=== PATIENT | female | born 1945 | race Caucasian/White ===

== ENCOUNTER 2021-10-15 12:44 | Emergency (ER) | payer MEDICARE ==
[2021-10-15 13:05] VITALS: BP 185/96; PULSE 80; RESP 18; TEMP 98.2
[2021-10-15] MEDS ORDERED: DEXAMETHASONE SOD PHOSPHATE 10 MG/ML 1 ML VIAL IM STA (13:22)
[2021-10-15] MEDS ORDERED: KETOROLAC 15 MG/ML 1 ML VIAL IM STA (13:22)
--- NOTE | 2021-10-15 13:55 | XR ---
EXAMINATION TYPE: XR shoulder complete RT DATE OF EXAM: 10/15/2021 CLINICAL HISTORY: pain TECHNIQUE: Three views of the right shoulder are obtained. COMPARISON: None FINDINGS: There is no acute fracture/dislocation evident. The acromioclavicular and glenohumeral claudio int spaces appear within normal limits. The visualized ribs are intact and unremarkable. There is va gabe lucency involving the humeral greater tuberosity region of the base of the humeral head. Underlyi ng lesion is difficult to exclude. Correlate with any history of primary malignancy. If felt clinical ly indicated bone scan could be performed on a nonemergent basis. Right axillary stent noted. IMPRESSION: 1. There is no acute fracture or dislocation. 2.There is vague lucency involving the humeral greater tuberosity region of the base of the humeral h ead. Underlying lesion is difficult to exclude. Correlate with any history of primary malignancy. ICD 10 NO FRACTURE, INITIAL EVALUATION
--- NOTE | 2021-10-15 13:57 | XR ---
EXAMINATION TYPE: XR humerus RT DATE OF EXAM: 10/15/2021 CLINICAL HISTORY: pain COMPARISON: NONE TECHNIQUE: Frontal and lateral images of the right humerus are obtained. FINDINGS: There is no acute fracture/dislocation evident. The joint spaces appear within normal limi ts. The overlying soft tissue appears unremarkable. IMPRESSION: There is no acute fracture or dislocation.ICD 10 NO FRACTURE, INITIAL EVALUATION
--- NOTE | 2021-10-15 13:57 | XR ---
EXAMINATION TYPE: XR forearm RT DATE OF EXAM: 10/15/2021 CLINICAL HISTORY: pain TECHNIQUE: Frontal and lateral images of the right forearm are obtained. COMPARISON: None. FINDINGS: There is no acute fracture/dislocation evident. The joint spaces appear within normal limi ts. The overlying soft tissue appears unremarkable. IMPRESSION: There is no acute fracture or dislocation. ICD 10 NO FRACTURE, INITIAL EVALUATION
--- NOTE | 2021-10-15 14:40 | ED ---
General Adult HPI - General Chief complaint: Extremity Injury, Upper Stated complaint: R arm pain Time Seen by Provider: 10/15/21 13:11 Source: patient Mode of arrival: ambulatory Limitations: no limitations - History of Present Illness Initial comments: Patient is a 76 year old female presenting with CC of R sided arm pain. Patient states that the pain initially began after a heart cath about one year ago, they attempted to go in through her R arm but were unsuccessful. She states that afterwards her textile clothing and footwear mechanic placed stents in the right arm. Throughout the last year patient has been experiencing cramping, squeezing pain at various locations throughout the R arm. Today it is in the upper arm and shoulder. She took 2 Advil last night which have not been helpful in alleviating the pain. She attempted to go to a chiropractor which also provided no pain relief. The pain is affecting her range of motion. She denies any numbness, tingling, swelling, discoloration, fever, chills, nausea, vomiting, chest pain, shortness of breath, headache, vision or hearing changes. - Related Data Previous Rx's Medication Instructions Recorded methylPREDNISolone [Medrol Dose 4 mg PO DIRECTED #1 packet 10/15/21 Pack] Allergies Allergy/AdvReac Type Severity Reaction Status Date / Time Sulfa (Sulfonamide Allergy Unknown Verified 07/22/21 14:57 Antibiotics) Review of Systems ROS Statement: Those systems with pertinent positive or pertinent negative responses have been documented in the HPI. ROS Other: All systems not noted in ROS Statement are negative. Past Medical History Past Medical History: Diabetes Mellitus, Hypertension History of Any Multi-Drug Resistant Organisms: None Reported Past Surgical History: Heart Catheterization Additional Past Surgical History / Comment(s): RIGHT ARM ARTERIAL STENTS Smoking Status: Never smoker Past Alcohol Use History: None Reported Past Drug Use History: None Reported General Exam Limitations: no limitations General appearance: alert, in no apparent distress Head exam: Present: atraumatic, normocephalic, normal inspection Eye exam: Present: normal appearance, EOMI. Absent: scleral icterus Neck exam: Present: normal inspection Respiratory exam: Present: normal lung sounds bilaterally. Absent: respiratory distress, wheezes, rales, rhonchi, stridor Cardiovascular Exam: Present: regular rate, normal rhythm, normal heart sounds. Absent: systolic murmur, diastolic murmur, rubs, gallop, clicks Right General: Present: normal inspection Shoulder Exam: Present: normal inspection, tenderness. Absent: full ROM (Secondary to pain), swelling, erythema Upper Arm exam: Present: normal inspection, tenderness. Absent: swelling, ecchymosis, erythema Neuro motor exam: Present: wrist extension intact Vascular: Present: radial pulse (palpated). Absent: vascular compromise Back exam: Present: normal inspection Neurological exam: Present: alert, oriented X3, CN II-XII intact Psychiatric exam: Present: normal affect, normal mood Skin exam: Present: warm, dry, intact, normal color. Absent: rash Course Vital Signs 10/15/21 13:01 Temperature 98.2 F Pulse Rate 80 Respiratory 18 Rate Blood Pressure 185/96 O2 Sat by Pulse 98 Oximetry Medical Decision Making - Medical Decision Making Patient is a 76-year-old female presenting with chief complaint of right arm pain. Pain is been ongoing for the last year, however she states that yesterday pain began to worsen. Pain was responsive to Advil at home. On examination there is no redness or swelling, there is tenderness to the shoulder and upper arm on palpation, radial pulse is palpated, there is no discoloration, extremity is warm. X-ray shows a vague lucency involving the humeral greater tuberosity region of the base of the humeral head. Underlying lesion is difficult to exclude. Patient states she has no history of malignancy. Patient was given Decadron and Toradol, she reports improvement. She appears stable for discharge with outpatient follow-up at this time. Educated patient on the xray findings and instructed her to follow up with her PCP. Follow-up with cardiology. She was provided a prescription for Medrol Dosepak. I educated her on return parameters and alarm symptoms. Report back to ER if any worsening symptoms. Answered all questions. Patient conveyed verbal understanding and agreed to the plan. I discussed this case with my attending Dr. Paniagua. Disposition Clinical Impression: Arm pain Disposition: HOME SELF-CARE Condition: Good Instructions (If sedation given, give patient instructions): Arm Pain (ED) Additional Instructions: Follow up with your PCP this week regarding the finding of a lucency on shoulder x-ray. Follow-up with your textile clothing and footwear mechanic at scheduled appointment. Take medication as prescribed. Take Motrin and Tylenol as needed for pain control. Report back to ER with any worsening symptoms. Prescriptions: methylPREDNISolone [Medrol Dose Pack] 4 mg PO DIRECTED #1 packet Is patient prescribed a controlled substance at d/c from ED?: No Referrals: Mónica Odom MD [Primary Care Provider] - 1-2 days Time of Disposition: 14:40
== END 2021-10-15 14:50 | disposition home or self-care (01) ==
LOC: EC 12:44
DX: M79.601 Pain in right arm (principal); E11.9 Type 2 diabetes mellitus without complications; I10 Essential (primary) hypertension; Z88.2 Allergy status to sulfonamides
CPT/HCPCS: 73030; 73060; 73090; 99283; 96372; J1100; J1885

== ENCOUNTER 2022-08-24 18:35 | Observation (INO) | payer MEDICARE ==
[2022-08-24 20:33] LABS: Basophils % (A) 1 %; Eosinophils # (A) 0.2 k/uL (0-0.7); Eosinophils % (A) 4 %; HCT 49.6 % (34.0-46.0); HGB 16.2 gm/dL (11.4-16.0); Lymphocytes # (A) 1.3 k/uL (1.0-4.8); Lymphocytes % (A) 21 %; MCH 30.1 pg (25.0-35.0); MCHC 32.7 g/dL (31.0-37.0); MCV 91.9 fL (80.0-100.0); Monocytes # (A) 0.3 k/uL (0-1.0); Monocytes % (A) 5 %; Neutrophils # (A) 4.2 k/uL (1.3-7.7); Neutrophils % (A) 68 %; Platelet Count 310 k/uL (150-450); RBC 5.39 m/uL (3.80-5.40); RDW 13.2 % (11.5-15.5); WBC 6.3 k/uL (3.8-10.6)
--- NOTE | 2022-08-24 20:49 | XR ---
EXAMINATION TYPE: XR chest 2V DATE OF EXAM: 08/24/2022 8:27 PM COMPARISON: None TECHNIQUE: XR chest 2V Frontal and lateral views of the chest. CLINICAL INDICATION:Female, 77 years old with history of Chest Pain; FINDINGS: Lungs/Pleura: There is flattening of the diaphragm with increased lucency of the lungs. No evidence o f pneumothorax, pleural effusion or focal consolidation. Pulmonary vascularity: Unremarkable. Heart/mediastinum: Cardiomediastinal silhouette is unremarkable. Musculoskeletal: No acute osseous pathology. IMPRESSION: 1. No acute cardiopulmonary disease process. 2. COPD changes.
[2022-08-24 20:52] LABS: ALT 31 U/L (4-34); AST 37 U/L (14-36); African American GFR (CKD) >90 (>60 ml/min/1.73 sqM); Albumin 4.4 g/dL (3.5-5.0); Alkaline Phosphatase 120 U/L (38-126); Anion Gap 7 mmol/L; Blood Urea Nitrogen 29 mg/dL (7-17); Calcium 9.6 mg/dL (8.4-10.2); Carbon Dioxide 23 mmol/L (22-30); Chloride 108 mmol/L (98-107); Glucose 101 mg/dL (74-99); Magnesium 2.2 mg/dL (1.6-2.3); Non-African American GFR(CKD) 84 (>60 ml/min/1.73 sqM); Sodium 138 mmol/L (137-145); Total Bilirubin 0.8 mg/dL (0.2-1.3); Total Protein 8.3 g/dL (6.3-8.2)
[2022-08-24 21:10] LABS: Potassium 4.3 mmol/L (3.5-5.1)
[2022-08-24 21:22] LABS: INR 0.9 (<1.2); Partial Thromboplastin Time 23.4 sec (22.0-30.0)
[2022-08-24] MEDS ORDERED: NALOXONE 0.4 MG/ML 1 ML VIAL IV PRN (21:33)
--- NOTE | 2022-08-24 21:33 | ED ---
Chest Pain HPI - General Chief Complaint: Chest Pain Stated Complaint: chest pain, sob - sent by pcp Time Seen by Provider: 08/24/22 18:40 Source: patient Mode of arrival: wheelchair Limitations: no limitations - History of Present Illness Initial Comments: 77-year-old female with past medical history of aortic root aneurysm, hypertension and presents to the emergency department reporting chest pain. States that she has had a productive cough, chills and shortness of breath for the past week. Today she began developing some pressure in her chest. States that she has significant exertional shortness of breath and fatigue. Denies fevers. No sick contacts. No ripping or tearing sensation to her back. No numbness, tingling or weakness in her extremities. Her blood pressure has been running high. She has not missed any of her medications. No other alleviating, precipitating or modifying factors - Related Data Home Medications Medication Instructions Recorded Confirmed Aspirin EC [Ecotrin Low Dose] 81 mg PO DAILY 08/24/22 08/24/22 Docusate [Colace] 100 mg PO Q4D 08/24/22 08/24/22 Empagliflozin [Jardiance] 25 mg PO DAILY 08/24/22 08/24/22 Insulin Glargine,Hum.rec.anlog 5 units SQ HS 08/24/22 08/24/22 [Lantus Solostar Pen] Insulin Glargine,Hum.rec.anlog 15 units SQ DAILY 08/24/22 08/24/22 [Lantus Solostar Pen] Insulin Lispro [humaLOG Kwikpen] See Protocol SQ AC-TID PRN 08/24/22 08/24/22 Losartan Potassium [Cozaar] 100 mg PO HS 08/24/22 08/24/22 Previous Rx's Medication Instructions Recorded carvediloL [Coreg] 6.25 mg PO BID-W/MEALS #60 tab 08/26/22 hydroCHLOROthiazide [Hydrodiuril] 25 mg PO DAILY #30 tab 08/26/22 Allergies Allergy/AdvReac Type Severity Reaction Status Date / Time Sulfa (Sulfonamide Allergy Unknown Verified 08/24/22 20:53 Antibiotics) iv dye Allergy Anaphylaxis Uncoded 08/24/22 18:44 Review of Systems ROS Statement: Those systems with pertinent positive or pertinent negative responses have been documented in the HPI. ROS Other: All systems not noted in ROS Statement are negative. EKG Findings - EKG Comments: EKG Findings:: EKG demonstrates sinus rhythm with a rate of 80. RI interval 246. QRS 109. QTC of 456. Some PVCs. Left bundle branch block. Mild ST depression V4 to V6. no ST segment elevation Past Medical History Past Medical History: Diabetes Mellitus, Hypertension History of Any Multi-Drug Resistant Organisms: None Reported Past Surgical History: Heart Catheterization Additional Past Surgical History / Comment(s): RIGHT ARM ARTERIAL STENTS Past Psychological History: No Psychological Hx Reported Smoking Status: Never smoker Past Alcohol Use History: None Reported Past Drug Use History: None Reported General Exam Limitations: no limitations General appearance: alert, in no apparent distress Head exam: Present: atraumatic, normocephalic, normal inspection Eye exam: Present: normal appearance, PERRL, EOMI. Absent: scleral icterus, conjunctival injection, periorbital swelling ENT exam: Present: normal exam, mucous membranes moist Neck exam: Present: normal inspection. Absent: tenderness, meningismus, lymphadenopathy Respiratory exam: Present: normal lung sounds bilaterally. Absent: respiratory distress, wheezes, rales, rhonchi, stridor Cardiovascular Exam: Present: regular rate, normal rhythm, normal heart sounds. Absent: systolic murmur, diastolic murmur, rubs, gallop, clicks GI/Abdominal exam: Present: soft, normal bowel sounds. Absent: distended, tenderness, guarding, rebound, rigid Extremities exam: Present: normal inspection, full ROM, normal capillary refill. Absent: tenderness, pedal edema, joint swelling, calf tenderness Back exam: Present: normal inspection Neurological exam: Present: alert, oriented X3, CN II-XII intact Psychiatric exam: Present: normal affect, normal mood Skin exam: Present: warm, dry, intact, normal color. Absent: rash Course Vital Signs 08/24/22 08/24/22 08/24/22 18:39 19:41 19:50 Temperature 97.4 F L Pulse Rate 87 67 Pulse Rate [ Pulse Oximetery ] Respiratory 20 13 Rate Blood Pressure 201/95 198/92 Blood Pressure [Left Arm] O2 Sat by Pulse 99 98 99 Oximetry 08/24/22 08/24/22 08/24/22 20:00 20:10 20:20 Temperature Pulse Rate 65 72 66 Pulse Rate [ Pulse Oximetery ] Respiratory 26 H 14 20 Rate Blood Pressure 198/92 198/92 211/91 Blood Pressure [Left Arm] O2 Sat by Pulse 100 100 Oximetry 08/24/22 08/24/22 08/24/22 20:30 20:40 20:50 Temperature Pulse Rate 69 74 74 Pulse Rate [ Pulse Oximetery ] Respiratory 13 21 22 Rate Blood Pressure 211/91 211/91 211/91 Blood Pressure [Left Arm] O2 Sat by Pulse 100 100 99 Oximetry 08/24/22 08/24/22 08/24/22 21:00 21:10 21:20 Temperature Pulse Rate 80 77 84 Pulse Rate [ Pulse Oximetery ] Respiratory 9 L 18 15 Rate Blood Pressure 211/91 211/91 211/91 Blood Pressure [Left Arm] O2 Sat by Pulse 100 97 99 Oximetry 08/24/22 08/24/22 08/24/22 21:30 21:40 22:20 Temperature Pulse Rate 80 76 80 Pulse Rate [ Pulse Oximetery ] Respiratory 17 15 16 Rate Blood Pressure 211/91 209/100 Blood Pressure [Left Arm] O2 Sat by Pulse 96 98 98 Oximetry 08/24/22 08/24/22 08/24/22 22:30 22:40 22:50 Temperature Pulse Rate 80 77 Pulse Rate [ Pulse Oximetery ] Respiratory 12 22 Rate Blood Pressure 209/100 173/129 173/129 Blood Pressure [Left Arm] O2 Sat by Pulse 99 98 Oximetry 08/24/22 08/24/22 08/24/22 23:00 23:10 23:20 Temperature Pulse Rate 73 73 71 Pulse Rate [ Pulse Oximetery ] Respiratory 20 11 L 10 L Rate Blood Pressure 173/129 172/79 172/79 Blood Pressure [Left Arm] O2 Sat by Pulse 98 98 97 Oximetry 08/25/22 02:10 Temperature 97.7 F Pulse Rate Pulse Rate [ 85 Pulse Oximetery ] Respiratory 17 Rate Blood Pressure Blood Pressure 125/77 [Left Arm] O2 Sat by Pulse 99 Oximetry Chest Pain MDM - MDM Was pt. sent in by a medical professional or institution (, PA, HUMAN RESOURCES CLERK, urgent care, hospital, or fpc...) When possible be specific @ -No Did you speak to anyone other than the patient for history (EMS, parent, family, police, friend...)? What history was obtained from this source @ -No Did you review nursing and triage notes (agree or disagree)? Why? @ -I reviewed and agree with nursing and triage notes Were old charts reviewed (outside hosp., previous admission, EMS record, old EKG, old radiological studies, urgent care reports/EKG's, fpc records)? Report findings @ -No old charts were reviewed Differential Diagnosis (chest pain, altered mental status, abdominal pain women, abdominal pain men, vaginal bleeding, weakness, fever, dyspnea, syncope, headache, dizziness, GI bleed, back pain, seizure, CVA, palpatations, mental health, musculoskeletal)? @ -acs, nstemi, stemi, coronary vasospasm, accelerated htn EKG interpreted by me (3pts min.). @ -yes X-rays interpreted by me (1pt min.). @ -no CT interpreted by me (1pt min.). @ -yes U/S interpreted by me (1pt. min.). @ -None done What testing was considered but not performed or refused? (CT, X-rays, U/S, labs)? Why? @ -None What meds were considered but not given or refused? Why? @ -pain medications - patient refused Did you discuss the management of the patient with other professionals (professionals i.e. , PA, HUMAN RESOURCES CLERK, lab, RT, psych nurse, social director, clinical staff educator, teacher, corporate officer, case making machine operator)? Give summary @ -Admitting physician Was smoking cessation discussed for >3mins.? @ -No Was critical care preformed (if so, how long)? @ -No Were there social determinants of health that impacted care today? How? (Homelessness, low income, unemployed, alcoholism, drug addiction, mandujano sportation, low edu. Level, literacy, decrease access to med. care, [facility], rehab)? @ -No Was there de-escalation of care discussed even if they declined (Discuss DNR or withdrawal of care, Hospice)? DNR status @ -No What co-morbidities impacted this encounter? (DM, HTN, Smoking, COPD, CAD, Cancer, CVA, ARF, Chemo, Hep., AIDS, mental health diagnosis, sleep apnea, morbid obesity)? @ -htn Was patient admitted / discharged? Hospital course, mention meds given and route, prescriptions, significant lab abnormalities, going to OR and other pertinent info. @ -Upon arrival patient is placed into room 3. A thorough history and physical exam was performed. Laboratory studies are conducted. I did offer something for pain control however patient refused. I reviewed her studies are reviewed and d-dimer is negative. CT is ordered of the aorta as CT PE protocol is not needed. Patient is pain-free in the emergency department. Recommended admission in order to trend her troponins for which she was agreeable. Spoke with Dr. gonzalez who agreed to admit the patient Undiagnosed new problem with uncertain prognosis? @ -Yes Drug Therapy requiring intensive monitoring for toxicity (Heparin, Nitro, Insulin, Cardizem)? @ -No Were any procedures done? @ -No Diagnosis/symptom? @ -acute chest pain Acute, or Chronic, or Acute on Chronic? @ -acute Uncomplicated (without systemic symptoms) or Complicated (systemic symptoms)? @ -complicated Side effects of treatment? @ -No Exacerbation, Progression, or Severe Exacerbation? @ -No Poses a threat to life or bodily function? How? (Chest pain, [place], [place], pneumonia, PE, COPD, DKA, ARF, appy, cholecystitis, CVA, Diverticulitis, Homicidal, Suicidal, threat to staff... and all critical care pts) @ -yes Disposition Clinical Impression: Chest pain Disposition: ADMITTED IP TO THIS HOSP Condition: Stable Is patient prescribed a controlled substance at d/c from ED?: No Time of Disposition: 21:33 Decision to Admit Reason: Admit from EC Decision Date: 08/24/22 Decision Time: 21:33
[2022-08-24] MEDS ORDERED: methylPREDNISolone SOD SUCCI 125 MG/2 ML VIAL IV STA (21:50)
[2022-08-24] MEDS ORDERED: FAMOTIDINE 20 MG/2 ML VIAL IV STA (21:50)
[2022-08-24] MEDS ORDERED: diphenhydrAMINE 50 MG/ML 1 ML VIAL IVP STA (21:50)
[2022-08-24] MEDS ORDERED: LABETALOL 5 MG/ML VIAL MDV IVP STA (21:59)
--- NOTE | 2022-08-24 23:16 | CT ---
EXAMINATION TYPE: CT angio thor/abd pel aorta DATE OF EXAM: 08/24/2022 COMPARISON: None HISTORY: abd pain CT DLP: 972.3 mGycm Automated exposure control for dose reduction was used. CONTRAST: Performed with IV Contrast, patient injected with 100 mL of Isovue 370. Images obtained from the thoracic inlet to the floor the pelvis with the IV contrast and without. The re are Three-D postprocessed images. The lungs are clear of consolidation. No pleural effusion. Heart size is normal. No pericardial effus ion. There are a few pretracheal lymph nodes up to 1 cm. There are no hilar masses. There is normal c ontrast opacification of the pulmonary arteries. No filling defect. There is 4.5 cm aneurysm of the a scending aorta. No dissection. There is normal branching pattern of the great vessels on the aortic a rch. There is arterial flow in the subclavian arteries and the common carotid arteries bilaterally. N o dissection. Liver spleen appear intact. There are some cystic changes and ductal ectasia involving the pancreas a nd consistent with atrophy and chronic pancreatitis. There are clips from cholecystectomy. No definit e pancreatic mass. The spleen is intact. Stomach is intact. There is no adrenal mass. Kidneys have normal size. No hydronephrosis. There is 2 cm cyst lateral lef t kidney. No retroperitoneal adenopathy. The bladder distends smoothly. No inguinal hernia. No free f luid in the pelvis. There are a few sigmoid diverticula. No diverticulitis. No mesenteric edema. No ascites or free air. No sign of a bowel obstruction. No intestinal wall thickening. There is arterial flow in the abdominal aorta and the celiac artery and superior mesenteric artery. T here is arterial flow in the renal and iliac and femoral arteries. No evidence of hemodynamic stenosi s. No arterial aneurysm or dissection. No evidence of any significant arterial plaque formation in th e abdomen and pelvis. The thoracic and abdominal aorta are intact. No compression fracture. There is narrowing at the L4-5 disc with vacuum disc and spur formation. The bony pelvis is intact. The hip joints are intact. No ev idence of rib fracture. 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 There are a few nonspecific mediastinal lymph nodes. No evidence of pulmonary embolism. No suspicious pulmonary mass. No significant angiographic abnormality in the abdomen and pelvis.
[2022-08-25] MEDS: LOSARTAN 50 MG TAB PO SCH ×2 (01:21→21:14)
[2022-08-25] MEDS: carvediloL 3.125 MG TAB PO SCH ×2 (01:21→09:19)
[2022-08-25 05:06] LABS: Basophils # (A) 0.1 k/uL (0-0.2); Basophils % (A) 1 %; Eosinophils % (A) 0 %; HGB 15.9 gm/dL (11.4-16.0); Lymphocytes # (A) 0.6 k/uL (1.0-4.8); Lymphocytes % (A) 8 %; MCH 29.9 pg (25.0-35.0); MCV 90.6 fL (80.0-100.0); Mean Platelet Volume 7.5; Monocytes # (A) 0.1 k/uL (0-1.0); Monocytes % (A) 1 %; Neutrophils % (A) 90 %; Platelet Count 284 k/uL (150-450); RDW 13.2 % (11.5-15.5); WBC 7.8 k/uL (3.8-10.6)
[2022-08-25 05:26] LABS: African American GFR (CKD) >90 (>60 ml/min/1.73 sqM); Anion Gap 12 mmol/L; Blood Urea Nitrogen 28 mg/dL (7-17); Calcium 9.5 mg/dL (8.4-10.2); Carbon Dioxide 18 mmol/L (22-30); Chloride 107 mmol/L (98-107); Glucose 124 mg/dL (74-99); Non-African American GFR(CKD) 84 (>60 ml/min/1.73 sqM); Potassium 4.5 mmol/L (3.5-5.1); Sodium 137 mmol/L (137-145)
[2022-08-25] MEDS ORDERED: FAMOTIDINE 20 MG/2 ML VIAL IV SCH (09:00)
[2022-08-25] MEDS: hydroCHLOROthiazide 25 MG TAB PO SCH (09:23)
[2022-08-25] MEDS: ASPIRIN 81 MG PO SCH (09:24)
[2022-08-25] MEDS: carvediloL 6.25 MG TAB PO SCH ×2 (09:24→17:13)
[2022-08-25] MEDS: HEPARIN SODIUM,PORCINE/PF 5,000 UNIT/0.5 ML SYRINGE SQ SCH ×2 (09:24→21:13)
--- NOTE | 2022-08-25 09:33 | P.CRDCN ---
History of Present Illness Consult date: 08/25/22 Consult reason: chest pain History of present illness: History of present illness: This is a 77 year old female patient of Dr. Jackson last seen in the office on 03/31/2022. 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 Patient gives history of having increased fatigue, feeling that her body is washed out. She is normally active around her house and finds that now she has to to work for about 15 minutes and then needs a break. She has some shortness of breath with this. She states her blood sugars have not been good. She denies having any chest pain and no change in her breathing. No lightheadedness or dizziness, no fever or chills, no cough or sputum production.she states she went to Dr. Odom's office yesterday and her blood pressure was extremely high and she was told to come in the hospital. Her initial blood pressure 209/100. She received 1 dose of labetalol 20 mg IV push while in the emergency center. Heart rate has been in the 70s to 90s. Blood pressure this morning is 142/87. EKG sinus rhythm and no acute ST changes Chest x-ray: no acute process WBC 7.8, hemoglobin 15.9, platelet count 284. Sodium 137, potassium 4.5, chloride 107, CO2 18, BUN 28 creatinine 0.6. Blood sugar 124. Troponin negative 3. ProBNP 530. Influenza A, influenza B, RSV, Covid 19 not detected. Home cardiac medications: aspirin 81 mg daily, coreg 3.125 mg twice day, Jardiance 25 mg daily, losartan 100 mg at hs. Echocardiogram 09/2021 aortic aneurysm measured 4 cm Review Of Systems: At the time of my evaluation: Constitutional: No fever, no chills. Reports fatigue. EENT: No headache. No dizziness. Lungs: No shortness of breath, cough, no sputum production. No wheezing. Cardiovascular: No chest pain, no lower extremity edema. No palpitations. No paroxysmal nocturnal dyspnea. No orthopnea. No lightheadedness or dizziness. No syncopal episodes. Abdominal: No abdominal pain. No nausea, vomiting. No diarrhea. Musculoskeletal: No myalgias. No muscle weakness, no frequent falls. Neurologic: No aphasia. No facial droop. No change in mentation. No head injury. No headache. Physical examination: Gen: This is a 77-year-old female. She is resting in bed and appears to be comfortable and in no acute distress. VS: reviewed HEENT: Head is atraumatic, normocephalic. Pupils equal, round. Sclerae is anicteric. NECK: Supple. No JVD. . LUNGS: Clear to auscultation. No wheezes or rhonchi. No intercostal retractions. HEART: Regular rate and rhythm. No murmur. ABDOMEN: Soft No tenderness. EXTREMITIES: No pedal edema. No calf tenderness. NEUROLOGICAL: Patient is awake, alert and oriented x3. Assessment: Fatigue No chest pain, acute coronary syndrome ruled out Nonischemic cardiomyopathy with recovered EF Ascending aortic aneurysm measuring 4.5 cm on computed tomography scan in July Hypertension uncontrolled Diabetes mellitus type 2 Scleroderma Plan: continue patient's home cardiac medications and increase Coreg to 6.25 mg daily Add hydrochlorothiazide 25 mg daily Obtain 2-D echocardiogram and Doppler study to assess cardiac structure and function and assess for pulmonary hypertension Further recommendations to follow based upon clinical course Thank you kindly for this consultation. Nurse practitioner note has been reviewed, I agree with documented findings and plan of care. Patient was seen and examined. Past Medical History Past Medical History: Diabetes Mellitus, Hypertension History of Any Multi-Drug Resistant Organisms: None Reported Past Surgical History: Heart Catheterization Additional Past Surgical History / Comment(s): RIGHT ARM ARTERIAL STENTS Past Psychological History: No Psychological Hx Reported Smoking Status: Never smoker Past Alcohol Use History: None Reported Past Drug Use History: None Reported Medications and Allergies Home Medications Medication Instructions Recorded Confirmed Type Aspirin EC [Ecotrin Low Dose] 81 mg PO DAILY 08/24/22 08/24/22 History Docusate [Colace] 100 mg PO Q4D 08/24/22 08/24/22 History Empagliflozin [Jardiance] 25 mg PO DAILY 08/24/22 08/24/22 History Insulin Glargine,Hum.rec.anlog 5 units SQ HS 08/24/22 08/24/22 History [Lantus Solostar Pen] Insulin Glargine,Hum.rec.anlog 15 units SQ DAILY 08/24/22 08/24/22 History [Lantus Solostar Pen] Insulin Lispro [humaLOG Kwikpen] See Protocol SQ AC-TID PRN 08/24/22 08/24/22 History Losartan Potassium [Cozaar] 100 mg PO HS 08/24/22 08/24/22 History carvediloL [Coreg] 3.125 mg PO BID-W/MEALS 08/24/22 08/24/22 History Allergies Allergy/AdvReac Type Severity Reaction Status Date / Time Sulfa (Sulfonamide Allergy Unknown Verified 08/24/22 20:53 Antibiotics) iv dye Allergy Anaphylaxis Uncoded 08/24/22 18:44 Physical Exam Vitals: Vital Signs Temp Pulse Pulse Resp BP BP Pulse Ox 08/25/22 02:10 97.7 F 85 17 125/77 99 08/24/22 23:20 71 10 L 172/79 97 08/24/22 23:10 73 11 L 172/79 98 08/24/22 23:00 73 20 173/129 98 08/24/22 22:50 77 22 173/129 98 08/24/22 22:40 80 12 173/129 99 08/24/22 22:30 209/100 08/24/22 22:20 80 16 209/100 98 08/24/22 21:40 76 15 98 08/24/22 21:30 80 17 211/91 96 08/24/22 21:20 84 15 211/91 99 08/24/22 21:10 77 18 /91 97 08/24/22 21:00 80 9 L 211/ 100 08/24/22 20:50 74 22 / 99 08/24/22 20:40 74 21 / 100 08/24/22 20:30 69 13 211/ 100 08/24/22 20:20 66 20 211/91 100 08/24/22 20:10 72 14 198/92 08/24/22 20:00 65 26 H 198/92 100 08/24/22 19:50 67 13 198/92 99 08/24/22 19:41 98 08/24/22 18:39 97.4 F L 87 20 201/95 99 Intake and Output 08/24/22 08/25/22 08/25/22 22:59 06:59 14:59 Other: # Voids 1 Weight 57.606 kg Results 08/25/22 04:26 08/25/22 04:26 Cardiac Enzymes 08/24/22 08/24/22 08/24/22 Range/Units 20:16 20:16 23:47 AST 37 H (14-36) U/L Troponin I <0.012 <0.012 (0.000-0.034) ng/mL 08/25/22 Range/Units 01:44 AST (14-36) U/L Troponin I <0.012 (0.000-0.034) ng/mL Coagulation 08/24/22 Range/Units 20:16 PT 10.0 (9.0-12.0) sec APTT 23.4 (22.0-30.0) sec CBC 08/24/22 08/25/22 Range/Units 20:16 04:26 WBC 6.3 7.8 (3.8-10.6) k/uL RBC 5.39 5.30 (3.80-5.40) m/uL Hgb 16.2 H 15.9 (11.4-16.0) gm/dL Hct 49.6 H 48.0 H (34.0-46.0) % Plt Count 310 284 (150-450) k/uL Comprehensive Metabolic Panel 08/24/22 08/25/22 Range/Units 20:16 04:26 Sodium 138 137 (137-145) mmol/L Potassium 4.3 4.5 (3.5-5.1) mmol/L Chloride 108 H 107 (98-107) mmol/L Carbon Dioxide 23 18 L (22-30) mmol/L BUN 29 H 28 H (7-17) mg/dL Creatinine 0.68 0.67 (0.52-1.04) mg/dL Glucose 101 H 124 H (74-99) mg/dL Calcium 9.6 9.5 (8.4-10.2) mg/dL AST 37 H (14-36) U/L ALT 31 (4-34) U/L Alkaline Phosphatase 120 (38-126) U/L Total Protein 8.3 H (6.3-8.2) g/dL Albumin 4.4 (3.5-5.0) g/dL Current Medications Generic Name Dose Route Start Last Admin Trade Name Freq PRN Reason Stop Dose Admin Aspirin 81 mg 08/25/22 09:00 Aspirin 81 Mg PO DAILY [facility] Carvedilol 3.125 mg 08/24/22 23:45 08/25/22 01:21 Carvedilol 3.125 Mg Tab PO Not Given BID-W/MEALS [facility] Docusate Sodium 100 mg 08/27/22 09:00 Docusate 100 Mg Cap PO Q4D [facility] Famotidine 20 mg 08/25/22 09:00 Famotidine 20 Mg/2 Ml Vial IV Q12HR [facility] Heparin Sodium (Porcine) 5,000 unit 08/25/22 09:00 Heparin Sodium,Porcine/Pf 5,000 Unit/0.5 Ml Syringe SQ Q12HR [facility] Losartan Potassium 100 mg 08/24/22 23:45 08/25/22 01:21 Losartan 50 Mg Tab PO Not Given HS [facility] Naloxone HCl 0.2 mg 08/24/22 21:33 Naloxone 0.4 Mg/Ml 1 Ml Vial IV Q2M PRN Opioid Reversal Intake and Output 08/24/22 08/25/22 08/25/22 22:59 06:59 14:59 Other: # Voids 1 Weight 57.606 kg 08/25/22 04:26 08/25/22 04:26
--- NOTE | 2022-08-25 10:05 | P.HPIM ---
History of Present Illness This is a pleasant 77 years old female with past medical history of diabetes mellitus and hypertension Patient presents because of chest pain of one-day duration of the left side associated with some breathing difficulty related about 7/10 in severity but it is resolved already when she came to the hospital overnight. Currently she denies any chest pain and admitted as 0/10, no breathing difficulty no complaints and no other complaints. Also patient denies change in urine or bowel habits. She denies fever. She is nonsmoker no alcohol drug.She follows up with Dr. Jackson as she explains for aneurysm above her heart review chest unremarkable CBC, INR, BMP, liver enzymes. And is negative D-dimer is -0.44 Viruses are undetected including influenza, RSV, covid viruses Thoracic aortic aneurysm is detected on CAT scan with ascites of 4.5 cm, there are a few nonspecific mediastinal lymph nodes. No evidence of pulmonary em bolism. Chest x-ray: No acute cardiopulmonary process, COPD changes Vitas looks stable, blood pressure is elevated to 172/79 on admission Review of Systems Review of systems CONSTITUTIONAL: No fever, no malaise, no fatigue. HEENT: No recent visual problems or hearing problems. Denied any sore throat. CARDIOVASCULAR: No orthopnea, PND, no palpitations, no syncope. PULMONARY: No shortness of breath, no cough, no hemoptysis. GASTROINTESTINAL: No diarrhea, no nausea, no vomiting, no abdominal pain. Normoactive bowel sounds. NEUROLOGICAL: No headaches, no weakness, no numbness. HEMATOLOGICAL: Denies any bleeding or petechiae. GENITOURINARY: Denies any burning micturition, frequency, or urgency. MUSCULOSKELETAL/RHEUMATOLOGICAL: Denies any joint pain, swelling, or any muscle pain. ENDOCRINE: Denies any polyuria or polydipsia. Past Medical History Past Medical History: Diabetes Mellitus, Hypertension History of Any Multi-Drug Resistant Organisms: None Reported Past Surgical History: Heart Catheterization Additional Past Surgical History / Comment(s): RIGHT ARM ARTERIAL STENTS Past Psychological History: No Psychological Hx Reported Smoking Status: Never smoker Past Alcohol Use History: None Reported Past Drug Use History: None Reported Medications and Allergies Home Medications Medication Instructions Recorded Confirmed Type Aspirin EC [Ecotrin Low Dose] 81 mg PO DAILY 08/24/22 08/24/22 History Docusate [Colace] 100 mg PO Q4D 08/24/22 08/24/22 History Empagliflozin [Jardiance] 25 mg PO DAILY 08/24/22 08/24/22 History Insulin Glargine,Hum.rec.anlog 5 units SQ HS 08/24/22 08/24/22 History [Lantus Solostar Pen] Insulin Glargine,Hum.rec.anlog 15 units SQ DAILY 08/24/22 08/24/22 History [Lantus Solostar Pen] Insulin Lispro [humaLOG Kwikpen] See Protocol SQ AC-TID PRN 08/24/22 08/24/22 History Losartan Potassium [Cozaar] 100 mg PO HS 08/24/22 08/24/22 History carvediloL [Coreg] 3.125 mg PO BID-W/MEALS 08/24/22 08/24/22 History Allergies Allergy/AdvReac Type Severity Reaction Status Date / Time Sulfa (Sulfonamide Allergy Unknown Verified 08/24/22 20:53 Antibiotics) iv dye Allergy Anaphylaxis Uncoded 08/24/22 18:44 Physical Exam Vitals: Vital Signs Temp Pulse Pulse Resp BP BP Pulse Ox 08/25/22 07:00 97.4 F L 91 18 142/87 97 08/25/22 02:10 97.7 F 85 17 125/77 99 08/24/22 23:20 71 10 L 172/79 97 08/24/22 23:10 73 11 L 172/79 98 08/24/22 23:00 73 20 173/129 98 08/24/22 22:50 77 22 173/129 98 08/24/22 22:40 80 12 173/129 99 08/24/22 22:30 209/100 08/24/22 22:20 80 16 209/100 98 08/24/22 21:40 76 15 98 08/24/22 21:30 80 17 211/91 96 08/24/22 21:20 84 15 211/91 99 08/24/22 21:10 77 18 211/91 97 08/24/22 21:00 80 9 L 211/91 100 08/24/22 20:50 74 22 / 99 08/24/22 20:40 74 21 / 100 08/24/22 20:30 69 13 / 100 08/24/22 20:20 66 20 / 100 08/24/22 20:10 72 14 198/92 08/24/22 20:00 65 26 H 100 08/24/22 19:50 67 13 99 08/24/22 19:41 98 08/24/22 18:39 97.4 F L 87 20 201/95 99 Intake and Output 08/24/22 08/25/22 08/25/22 22:59 06:59 14:59 Other: # Voids 1 Weight 57.606 kg GENERAL: The patient is alert and oriented x3, not in any acute distress. Well developed, well nourished. HEENT: Pupils are round and equally reacting to light. EOMI. No scleral icterus. No conjunctival pallor. Normocephalic, atraumatic. No pharyngeal erythema. No thyromegaly. CARDIOVASCULAR: S1 and S2 present. No murmurs, rubs, or gallops. PULMONARY: Chest is clear to auscultation, no wheezing or crackles. ABDOMEN: Soft, nontender, nondistended, normoactive bowel sounds. No palpable organomegaly. MUSCULOSKELETAL: No joint swelling or deformity. EXTREMITIES: No cyanosis, clubbing, or pedal edema. NEUROLOGICAL: Gross neurological examination did not reveal any focal deficits. SKIN: No rashes. no petechiae. Results CBC & Chem 7: 08/25/22 04:26 08/25/22 04:26 Labs: Abnormal Lab Results - Last 24 Hours (Table) 08/24/22 08/24/22 08/25/22 Range/Units 20:16 20:16 04:26 Hgb 16.2 H (11.4-16.0) gm/dL Hct 49.6 H 48.0 H (34.0-46.0) % Lymphocytes # 0.6 L (1.0-4.8) k/uL Chloride 108 H (98-107) mmol/L Carbon Dioxide (22-30) mmol/L BUN 29 H (7-17) mg/dL Glucose 101 H (74-99) mg/dL AST 37 H (14-36) U/L Total Protein 8.3 H (6.3-8.2) g/dL 08/25/22 Range/Units 04:26 Hgb (11.4-16.0) gm/dL Hct (34.0-46.0) % Lymphocytes # (1.0-4.8) k/uL Chloride (98-107) mmol/L Carbon Dioxide 18 L (22-30) mmol/L BUN 28 H (7-17) mg/dL Glucose 124 H (74-99) mg/dL AST (14-36) U/L Total Protein (6.3-8.2) g/dL Assessment and Plan Assessment: Chest pain, rule out cardiac causes. Currently resolved. D-dimer -0.4 Hypertension Hyperlipidemia Diabetes mellitus Plan: Continue with aspirin Serial troponin Cardiology consult Labs and medication were reviewed.. Continue same treatment. Continue with symptomatic treatment. Resume home medication. Monitor labs and vitals. DVT and GI prophylaxis. Further recommendations as per clinical course of the patient DVT prophylaxis: Subcutaneous heparin GI Prophylaxis: Pepcid PT/OT: Pending Prognosis is guarded
[2022-08-25] MEDS ORDERED: DEXTROSE 50% SYRINGE 50 ML IVP PRN ×2 (12:50)
[2022-08-25] MEDS: INSULIN ASPART (NovoLOG) 100 UNIT/ML VIAL SQ SCH ×2 (17:13→21:13)
[2022-08-25 17:23] LABS: Glucose,Whole Blood 331 mg/dL (70-110)
[2022-08-25 20:49] LABS: Glucose,Whole Blood 346 mg/dL (70-110)
[2022-08-25] MEDS: FAMOTIDINE 20 MG TAB PO SCH (21:13)
[2022-08-26] MEDS: MELATONIN 3 MG TABLET PO SCH ×2 (02:38→03:04)
[2022-08-26 05:47] LABS: Glucose,Whole Blood 158 mg/dL (70-110)
[2022-08-26] MEDS: INSULIN ASPART (NovoLOG) 100 UNIT/ML VIAL SQ SCH (05:55)
[2022-08-26] MEDS: carvediloL 6.25 MG TAB PO SCH (05:55)
--- NOTE | 2022-08-26 07:34 | P.PN ---
Subjective Progress Note Date: 08/26/22 Principal diagnosis: Hypertension The patient is a pleasant 77-year-old female patient with history of cardiomyopathy which has recovered/improved as well as history of ascending aortic aneurysm as well as history of scleroderma and hypertension and dyslipidemia and diabetes was admitted to the hospital was nonspecific symptoms of being tired and fatigued and has no energy and she was found to have elevated blood pressure. August 262022 The patient was seen and evaluated this morning. Yesterday we added has I to the current medical regimen and since then the pressure has been better. She reports no cardiovascular symptoms at this point. She would like to go home. From a cardiovascular standpoint of view, the patient can be discharged home. Assessment Hypertension, seems to be consistent with stage II hypertension, has improved History of ascending aortic aneurysm History of scleroderma Multiple comorbid conditions History of cardiomyopathy Plan Follow up on the echocardiogram The patient can be discharged Objective - Vital Signs Vital signs: Vital Signs Temp 97.8 F 08/26/22 01:41 Pulse 82 08/26/22 01:41 Resp 18 08/26/22 01:41 BP 95/58 08/26/22 01:41 Pulse Ox 96 08/26/22 01:41 FiO2 Intake & Output 08/25/22 08/26/22 08/26/22 18:59 06:59 18:59 Intake Total 240 Balance 240 Intake: Oral 240 Other: Voiding Method Toilet # Voids 2 2 - Labs CBC & Chem 7: 08/25/22 04:26 08/25/22 04:26 Labs: Abnormal Lab Results - Last 24 Hours (Table) 08/25/22 08/25/22 08/25/22 Range/Units 04:26 17:04 20:47 POC Glucose (mg/dL) 331 H 346 H (70-110) mg/dL Hemoglobin A1c 8.9 H (0.0-6.0) % 08/26/22 Range/Units 05:45 POC Glucose (mg/dL) 158 H (70-110) mg/dL Hemoglobin A1c (0.0-6.0) %
[2022-08-26 08:47] VITALS: BP 131/66; PULSE 72; RESP 17; TEMP 97.5
[2022-08-26] MEDS: hydroCHLOROthiazide 25 MG TAB PO SCH (09:03)
[2022-08-26] MEDS: FAMOTIDINE 20 MG TAB PO SCH (09:03)
[2022-08-26] MEDS: HEPARIN SODIUM,PORCINE/PF 5,000 UNIT/0.5 ML SYRINGE SQ SCH (09:03)
[2022-08-26] MEDS: ASPIRIN 81 MG PO SCH (09:03)
--- NOTE | 2022-08-26 11:52 | CA ---
Transthoracic Echo Report Name: Manisha Zelaya Age: 77 Gender: F : 1945 Exam Date: 08/25/2022 14:25 Exam Location: [place] [facility] Ht (in): 63 Wt (lb): 127 Ordering Physician: Marti Garcia Attending/Referring Phys: [id number], Jose Billet Heater Operator Ko Jaimes RDCS Procedure CPT: Indications: pulm htn Cardiac Hx: PHTN Technical Quality: Fair Contrast 1: Total Dose (mL): Contrast 2: Total Dose (mL): MEASUREMENTS (Male / Female) Normal Values 2D ECHO LV Diastolic Diameter PLAX 4.1 cm 4.2 - 5.9 / 3.9 - 5.3 cm LV Systolic Diameter PLAX 2.5 cm IVS Diastolic Thickness 1.2 cm 0.6 - 1.0 / 0.6 - 0.9 cm LVPW Diastolic Thickness 1.2 cm 0.6 - 1.0 / 0.6 - 0.9 cm LV Relative Wall Thickness 0.6 RV Internal Dim ED PLAX 2.8 cm LVOT Diameter 2.1 cm LA Systolic Diameter LX 3.9 cm 3.0 - 4.0 / 2.7 - 3.8 cm LV Diastolic Volume MOD BP 95.7 cm??? 67 - 155 / 56 - 104 cm??? LV Systolic Volume MOD BP 43.7 cm??? 22 - 58 / 19 - 49 cm??? LV Ejection Fraction MOD BP 54.3 % >= 55 % LV Diastolic Volume MOD 4C 95.5 cm??? LV Systolic Volume MOD 4C 38.6 cm??? LV Ejection Fraction MOD 4C 59.6 % LV Diastolic Length 4C 6.9 cm LV Systolic Length 4C 5.1 cm LV Diastolic Volume MOD 2C 88.1 cm??? LV Systolic Volume MOD 2C 49.7 cm??? LV Ejection Fraction MOD 2C 43.6 % LV Diastolic Length 2C 6.3 cm LV Systolic Length 2C 5.1 cm Ascending Aorta Diameter 2.3 cm M-MODE Aortic Root Diameter MM 2.2 cm LA Systolic Diameter MM 4.1 cm LA Ao Ratio MM 1.8 MV E Point Septal Separation 1.0 cm AV Cusp Separation MM 1.4 cm DOPPLER AV Peak Velocity 134.6 cm/s AV Peak Gradient 7.2 mmHg Mitral E Point Velocity 63.9 cm/s Mitral A Point Velocity 109.9 cm/s Mitral E to A Ratio 0.6 MV Deceleration Time 116.2 ms MV E' Velocity 4.2 cm/s Mitral E to MV E' Ratio 15.4 TR Peak Velocity 289.7 cm/s TR Peak Gradient 33.6 mmHg Right Ventricular Systolic Press 41.6 mmHg PV Peak Velocity 112.0 cm/s PV Peak Gradient 5.0 mmHg FINDINGS Left Ventricle Left ventricular ejection fraction is estimated at 55-60 %. Mild concentric left ventricular hypertrophy. Grade 1 diastolic dysfunction. Normal basal systolic function. Right Ventricle Normal right ventricular size. [id number] mm Hg. Right Atrium Mild right atrial dilatation. Left Atrium Mild left atrial dilatation. Mitral Valve Mitral valve thickened. Mitral annular calcification. Mild mitral stenosis. [id number] mitral regurgitation. Aortic Valve Aortic valve not well visualized. Diffuse thickening (sclerosis) of the aortic valve cusps without reduced excursion. Tricuspid Valve [id number] tricuspid regurgitation. Pulmonic Valve Pulmonic valve not well visualized. Pericardium Normal pericardium. No pericardial effusion. Aorta Normal size aortic root and proximal ascending aorta. CONCLUSIONS Normal LV systolic function Mild pulmonary hypertension Mild to moderate mitral regurgitation Aortic sclerosis was no stenosis or insufficiency Previewed by: Dr. Jose Harris MD (Electronically Signed) Final Date: 26 August 2022 11:51
[2022-08-27] MEDS ORDERED: DOCUSATE 100 MG CAP PO SCH (09:00)
--- NOTE | 2022-08-31 06:24 | P.DS ---
Providers Date of admission: 08/24/22 21:33 Expected date of discharge: 08/26/22 Attending physician: Ethan Wilson MD Consults: 08/24/22 21:33 Consult Physician Urgent Consulting Provider: [facility] Consult Reason/Comments: chest pain Do you want consulting provider notified?: Yes Primary care physician: Mónica Odom Hospital Course: Final diagnosis Chest pain, ruled out ACS Hypertension Hyperlipidemia Diabetes mellitus Discharge disposition Patient is being discharged in a stable condition with guarded prognosis to home. Patient will follow-up with Dr. Odom in the outpatient setting upon discharge. Patient is to follow-up with cardiology outpatient as scheduled. Total time taken is greater than 35 minutes. Hospital course This is a 77-year-old female who was recently admitted with chest pain and evaluated by cardiology. Patient underwent 2-D echo instructed to follow-up outpatient. Patient has been cleared by consultations reports improvement in chest pain would like to go home. Please refer to cardiology note for further HPI. Currently no reports of chest pain, shortness of breath, or palpitations. Patient is afebrile. No reports of nausea or vomiting and patient is tolerating diet. Patient will be discharged home today. Physical exam: Gen: This is a 77-year-old female who is awake, alert and oriented 3, well-developed, well-nourished HEENT: Head is atraumatic, normocephalic. Pupils equal, round. Sclerae is anicteric. NECK: Supple. No JVD. No lymphadenopathy. No thyromegaly. LUNGS: Clear to auscultation. No wheezes or rhonchi. No intercostal retractions. HEART: Regular rate and rhythm. No murmur. ABDOMEN: Soft. Bowel sounds are present. No masses. No tenderness. EXTREMITIES: No pedal edema. No calf tenderness. NEUROLOGICAL: Patient is awake, alert and oriented x3. Cranial nerves 2 through 12 are grossly intact. Please refer to medication reconciliation sheet for a list of medications. The impression and plan of care has been dictated by Velma Marie, Nurse Practitioner as directed. Dr. Hal MD I have performed a history and examination and MDM of this patient, discussed the same with the dictator, and agree with the dictator's assessment and plan as written ,documented as a scribe. Based on total visit time, I have performed more than 50% of the visit. Patient Condition at Discharge: Stable Plan - Discharge Summary New Discharge Prescriptions: New carvediloL [Coreg] 6.25 mg PO BID-W/MEALS #60 tab hydroCHLOROthiazide [Hydrodiuril] 25 mg PO DAILY #30 tab Continue Insulin Glargine,Hum.rec.anlog [Lantus Solostar Pen] 5 units SQ HS Empagliflozin [Jardiance] 25 mg PO DAILY Aspirin EC [Ecotrin Low Dose] 81 mg PO DAILY Docusate [Colace] 100 mg PO Q4D Insulin Glargine,Hum.rec.anlog [Lantus Solostar Pen] 15 units SQ DAILY Losartan Potassium [Cozaar] 100 mg PO HS Insulin Lispro [humaLOG Kwikpen] See Protocol SQ AC-TID PRN PRN Reason: Blood Sugar - High Discontinued carvediloL [Coreg] 3.125 mg PO BID-W/MEALS Discharge Medication List Aspirin EC [Ecotrin Low Dose] 81 mg PO DAILY 08/24/22 [History] Docusate [Colace] 100 mg PO Q4D 08/24/22 [History] Empagliflozin [Jardiance] 25 mg PO DAILY 08/24/22 [History] Insulin Glargine,Hum.rec.anlog [Lantus Solostar Pen] 5 units SQ HS 08/24/22 [History] Insulin Glargine,Hum.rec.anlog [Lantus Solostar Pen] 15 units SQ DAILY 08/24/22 [History] Insulin Lispro [humaLOG Kwikpen] See Protocol SQ AC-TID PRN 08/24/22 [History] Losartan Potassium [Cozaar] 100 mg PO HS 08/24/22 [History] carvediloL [Coreg] 6.25 mg PO BID-W/MEALS #60 tab 08/26/22 [Rx] hydroCHLOROthiazide [Hydrodiuril] 25 mg PO DAILY #30 tab 08/26/22 [Rx] Follow up Appointment(s)/Referral(s): Jose Harris MD [STAFF PHYSICIAN] - 09/09/22 3:00 pm (Appointment with Dr Jackson at main office.) Mónica Odom MD [Primary Care Provider] - 1-2 days Patient Instructions/Handouts: Chest Pain (DC) Activity/Diet/Wound Care/Special Instructions: Activity Limited until follow-up Follow-up with primary care provider on discharge Follow-up with cardiology outpatient in one week Continue taking medications as prescribed Continue monitoring blood sugars and keep a diary of all readings Continue heart healthy diabetic diet Discharge Disposition: HOME SELF-CARE
== END 2022-08-26 12:37 | disposition home or self-care (01) ==
LOC: EC 18:35 → 6NMEDSUR 21:33
PROVIDERS: ADMIT Internal Medicine; ATTEND Internal Medicine
DX: R07.89 Other chest pain (principal); R06.02 Shortness of breath; I10 Essential (primary) hypertension; E78.5 Hyperlipidemia, unspecified; E11.9 Type 2 diabetes mellitus without complications; Z20.822 Contact with and (suspected) exposure to COVID-19; Z86.79 Personal history of other diseases of the circulatory system; Z86.16 Personal history of COVID-19; R53.83 Other fatigue; I42.9 Cardiomyopathy, unspecified; M34.9 Systemic sclerosis, unspecified; Z79.4 Long term (current) use of insulin; Z79.82 Long term (current) use of aspirin; Z79.899 Other long term (current) drug therapy; Z88.2 Allergy status to sulfonamides; Z91.041 Radiographic dye allergy status
CPT/HCPCS: 96376; 96372 ×2; 96374; 96375; 99285; 36415; 94760; 93005; 93306; 85379; 83880; 80053; 80048; 83735; 84484 ×2; 85025 ×2; 85610; 85730; 83036; 87636; 71046; 71275; 74174; G0378 ×3; J1200; J2930; Q9967; J1644 ×2

== ENCOUNTER → 2024-01-26 | Outpatient (CLI) | payer MEDICARE | END | disposition home or self-care (01) | LOC: LABWHC1 11:02 | DX: Z53.9 Procedure and treatment not carried out, unspecified reason (principal) ==

== ENCOUNTER 2024-09-09 17:30 | Inpatient (IN) | payer MEDICARE ==
[2024-09-09 18:00] LABS: Basophils # (A) 0.06 10*3/uL (0.00-0.10); Basophils % (A) 1.2 %; Eosinophils # (A) 0.07 10*3/uL (0.04-0.35); Eosinophils % (A) 1.5 %; HCT 44.3 % (37.2-46.3); HGB 15.4 g/dL (12.0-15.0); Lymphocytes # (A) 0.99 10*3/uL (0.90-5.00); Lymphocytes % (A) 20.6 %; MCH 31.4 pg (27.0-32.0); MCHC 34.8 g/dL (32.0-37.0); MCV 90.4 fL (80.0-97.0); Mean Platelet Volume 11.1 fL (9.5-12.2); Monocytes # (A) 0.32 10*3/uL (0.20-1.00); Monocytes % (A) 6.7 %; Neutrophils # (A) 3.37 10*3/uL (1.80-7.70); Platelet Count 221 10*3/uL (140-440); RDW 15.2 % (11.5-14.5); WBC 4.81 10*3/uL (4.50-10.00)
--- NOTE | 2024-09-09 18:00 | ED ---
Weakness HPI - General Chief complaint: Weakness Stated complaint: ABD Pain Time Seen by Provider: 09/09/24 18:00 Source: patient, family (Daughter), RN notes reviewed Mode of arrival: ambulatory Limitations: no limitations - History of Present Illness Initial comments: 79-year-old female presenting to the ER for evaluation of weakness. Patient has a past medical history significant of hypertension, diabetes mellitus and ascending aortic aneurysm. She is following up with Dr. Jackson, cardiology. Patient reports since May she has lost approximately 20 pounds and within the past 2 weeks she has lost 6 pounds. She also reports feeling extremely weak and tired since May 2024. She is experiencing a generalized abdominal discomfort. She states it is an achy pain with no focal location. Patient admits to frequent belching. She denies any nausea, vomiting, diarrhea or constipation. She does report her stools have been loose but not diarrhea. Denies any hematochezia or melena. She also admits to chills but denies any known fevers. She states on Monday she noticed her urine to be extremely dark and is concerned she is also dehydrated. Daughter, at bedside, she reports she does appear jaundice. Patient admits to a history of cholecystectomy and appendectomy. No history of bowel resections. Patient states she had has a colonoscopy in the past. Patient denies any dizziness, lightheadedness, chest pain, shortness of breath or peripheral edema. No other complaints. - Related Data Home Medications Medication Instructions Recorded Confirmed Aspirin EC [Ecotrin Low Dose] 81 mg PO DAILY 08/24/22 09/09/24 Docusate [Colace] 100 mg PO Q2D PRN 08/24/22 09/09/24 Empagliflozin [Jardiance] 25 mg PO DAILY 08/24/22 09/09/24 Losartan Potassium [Cozaar] 100 mg PO DAILY 08/24/22 09/09/24 Insulin Aspart (Niacinamide) See Protocol SQ AC-TID 09/09/24 09/09/24 [Fiasp 100 Unit/ml Flextouch Pen] Insulin Degludec [Tresiba 7 units SQ DAILY 09/09/24 09/09/24 Flextouch U-100 Pen] Nitroglycerin Sl Tabs [Nitrostat] 0.4 mg SL Q5M PRN 09/09/24 09/09/24 carvediloL [Coreg] 3.125 mg PO BID 09/09/24 09/09/24 Allergies Allergy/AdvReac Type Severity Reaction Status Date / Time Iodinated Contrast Media Allergy Anaphylaxis Verified 09/09/24 17:51 Sulfa (Sulfonamide Allergy Unknown Verified 09/09/24 17:51 Antibiotics) iv dye Allergy Anaphylaxis Uncoded 09/09/24 17:51 Review of Systems ROS Statement: Those systems with pertinent positive or pertinent negative responses have been documented in the HPI. ROS Other: All systems not noted in ROS Statement are negative. Past Medical History Past Medical History: Diabetes Mellitus, Hypertension Additional Past Medical History / Comment(s): aorticc aneursym History of Any Multi-Drug Resistant Organisms: None Reported Past Surgical History: Heart Catheterization Additional Past Surgical History / Comment(s): RIGHT ARM ARTERIAL STENTS Past Psychological History: No Psychological Hx Reported Smoking Status: Never smoker Past Alcohol Use History: None Reported Past Drug Use History: None Reported General Exam Limitations: no limitations General appearance: alert, in no apparent distress Respiratory exam: Present: normal lung sounds bilaterally. Absent: respiratory distress, wheezes, rales, rhonchi, stridor Cardiovascular Exam: Present: regular rate, normal rhythm, normal heart sounds. Absent: systolic murmur, diastolic murmur, rubs, gallop, clicks GI/Abdominal exam: Present: soft, tenderness (RUQ), normal bowel sounds Extremities exam: Present: normal inspection, full ROM, normal capillary refill. Absent: tenderness, pedal edema, joint swelling, calf tenderness Neurological exam: Present: alert, oriented X3, CN II-XII intact Skin exam: Present: warm, dry, intact, normal color. Absent: rash Course Vital Signs 09/09/24 09/09/24 09/09/24 17:32 18:46 19:16 Temperature 97.5 F L Pulse Rate 69 66 83 Respiratory 20 16 17 Rate Blood Pressure 215/89 208/86 182/86 O2 Sat by Pulse 98 97 100 Oximetry - Reevaluation(s) Reevaluation #1: 09/09/24 20:[address] [facility], Dr. Wilson, who accepts admission. EKG Findings - EKG Comments: EKG Findings:: EKG taken at 18:00 showing a sinus rhythm with first degree av block. ventricular rate 60, MT interval 278, QRS duration 104, QT/QTc 450/452 Medical Decision Making - Medical Decision Making Was pt. sent in by a medical professional or institution (KEVIN aBrnes, TILTING SAW OPERATOR, urgent care, hospital, or snf...) When possible be specific @ -Patient sent by PCP for evaluation of weakness and abdominal pain Did you speak to anyone other than the patient for history (EMS, parent, family, police, friend...)? What history was obtained from this source @ -Patient's daughter, at bedside, aiding in HPI and PMHx. Did you review nursing and triage notes (agree or disagree)? Why? @ -I reviewed and agree with nursing and triage notes Were old charts reviewed (outside hosp., previous admission, EMS record, old EKG, old radiological studies, urgent care reports/EKG's, snf records)? Report findings @ -No old charts were reviewed Differential Diagnosis (chest pain, altered mental status, abdominal pain women, abdominal pain men, vaginal bleeding, weakness, fever, dyspnea, syncope, headache, dizziness, GI bleed, back pain, seizure, CVA, palpatations, mental health, musculoskeletal)? @ -Differential Abdominal Pain Women:Appendicitis, Cholecystitis, diverticulosis, ischemic bowel, pancreatitis, hepatitis, UTI, gastroenteritis, AAA, incarcerated hernia, bowel obstruction, constipation, inflammatory bowel, hepatitis, peptic ulcer disease, splenic infarction, perforated viscus, vulvitis, ovarian torsion, PID, kidney stone, placenta abruption, this is not meant to be an all-inclusive list EKG interpreted by me (3pts min.). @ -As above X-rays interpreted by me (1pt min.). @ -None done CT interpreted by me (1pt min.). @ -CT abdomen pelvis showing a heterogeneous hypodense large pancreatic head area with suspected underlying neoplasm. New distal pancreatic ductal dilation and moderate biliary dilation. Reactive duodenitis suspected. U/S interpreted by me (1pt. min.). @ -None done What testing was considered but not performed or refused? (CT, X-rays, U/S, labs)? Why? @ -None What meds were considered but not given or refused? Why? @ -None Did you discuss the management of the patient with other professionals (professionals i.e. KEVIN Barnes, TILTING SAW OPERATOR, lab, RT, psych nurse, social sciences professor, mixer operator raw salt, teacher, product safety officer, director case)? Give summary @ -Case discussed with Dr. Katie LEMONS, who accepts admission. Was smoking cessation discussed for >3mins.? @ -No Was critical care preformed (if so, how long)? @ -No Were there social determinants of health that impacted care today? How? (Homelessness, low income, unemployed, alcoholism, drug addiction, transportation, low edu. Level, literacy, decrease access to med. care, [facility], rehab)? @ -No Was there de-escalation of care discussed even if they declined (Discuss DNR or withdrawal of care, Hospice)? DNR status @ -No What co-morbidities impacted this encounter? (DM, HTN, Smoking, COPD, CAD, Cancer, CVA, ARF, Chemo, Hep., AIDS, mental health diagnosis, sleep apnea, m orbid obesity)? @ -Diabetes mellitus, hypertension Was patient admitted / discharged? Hospital course, mention meds given and route, prescriptions, significant lab abnormalities, going to OR and other pertinent info. @ -Admitted. 79-year-old female presented to ER for evaluation of weakness and generalized abdominal pain. Upon rooming, history and physical exam completed. Patient is hypertensive at 215/89, vitals otherwise acceptable limits. Exam remarkable for a right upper quadrant abdominal tenderness with normal bowel sounds. No rebound or guarding. Laboratory studies show transaminitis with total bilirubin to 2.7, AST 353 ALT 361 with alk phos 1282. CT ab pelvis compl eted at that time showing a suspected large pancreatic head neoplasm with new distal pancreatic ductal dilation and moderate biliary dilation. Reactive duodenitis. Urinalysis with 4+ glucose likely related to patient's diabetes, no evidence of infection. Influenza, RSV and COVID-negative. Patient given symptomatic control in the emergency department with IV fluids, Toradol. Patient did get 10 mg IV push hydralazine given hypertension, with improvement to 182/86. Patient was premedicated with IV Solu-Medrol, Pepcid and Benadryl for CT given iodine allergy. Upon reevaluation, patient resting comfortably in exam with no signs of acute distress. Results discussed with patient including c oncern of possible malignancy, all questions answered. Admission was considered and discussed for GI and surgery consultation given concern of pancreatic head neoplasm, this was accepted by, Dr. Katie LEMONS. GI and surgery on consult. Patient agreeable for admission. Patient admitted in stable condition for further evaluation and treatment. Case discussed with ED attending, Dr. Colin. Undiagnosed new problem with uncertain prognosis? @ -No Drug Therapy requiring intensive monitoring for toxicity (Heparin, Nitro, Insulin, Cardizem)? @ -No Were any procedures done? @ -No Diagnosis/symptom? @ -Transaminitis/abnormal CT scan Acute, or Chronic, or Acute on Chronic? @ -Acute Uncomplicated (without systemic symptoms) or Complicated (systemic symptoms)? @ -Complicated Side effects of treatment? @ -No Exacerbation, Progression, or Severe Exacerbation? @ -No Poses a threat to life or bodily function? How? (Chest pain, [place], [place], pneumonia, PE, COPD, DKA, ARF, appy, cholecystitis, CVA, Diverticulitis, Homicidal, Suicidal, threat to staff... and all critical care pts) @ -Yes, cannot rule out malignancy - Lab Data Result diagrams: 09/09/24 17:53 09/09/24 17:53 Lab Results 09/09/24 09/09/24 09/09/24 Range/Units 17:53 17:53 17:53 WBC 4.81 (4.50-10.00) 10*3/uL RBC 4.90 (4.10-5.20) 10*6/uL Hgb 15.4 H (12.0-15.0) g/dL Hct 44.3 (37.2-46.3) % MCV 90.4 (80.0-97.0) fL MCH 31.4 (27.0-32.0) pg MCHC 34.8 (32.0-37.0) g/dL Plt Count 221 (140-440) 10*3/uL MPV 11.1 (9.5-12.2) fL Immature Gran % (Auto) 0 % Neutrophils % 70.0 % Lymphocytes % 20.6 % Monocytes % 6.7 % Eosinophils % 1.5 % Basophils % 1.2 % Immature Gran # 0.00 (0.00-0.04) 10*3/uL Neutrophils # 3.37 (1.80-7.70) 10*3/uL Lymphocytes # 0.99 (0.90-5.00) 10*3/uL Monocytes # 0.32 (0.20-1.00) 10*3/uL Eosinophils # 0.07 (0.04-0.35) 10*3/uL Basophils # 0.06 (0.00-0.10) 10*3/uL Sodium 138 (137-145) mmol/L Potassium 4.2 (3.5-5.1) mmol/L Chloride 106 (98-107) mmol/L Carbon Dioxide 20 L (22-30) mmol/L Anion Gap 12 mmol/L BUN 12 (7-17) mg/dL Creatinine 0.59 (0.52-1.04) mg/dL Est GFR (CKD-EPI)AfAm >90 (>60 ml/min/1.73 sqM) Est GFR (CKD-EPI)NonAf 86 (>60 ml/min/1.73 sqM) Glucose 154 H (74-99) mg/dL Plasma Lactic Acid [place] 1.2 (0.7-2.0) mmol/L Calcium 10.0 (8.4-10.2) mg/dL Total Bilirubin 2.7 H (0.2-1.3) mg/dL AST 353 H (14-36) U/L ALT 361 H (4-34) U/L Alkaline Phosphatase 1282 H (38-126) U/L Total Protein 7.4 (6.3-8.2) g/dL Albumin 4.0 (3.5-5.0) g/dL Amylase 40 (30-110) U/L Lipase 40 (23-300) U/L Urine Color Urine Appearance (Clear) Urine pH (5.0-8.0) Ur Specific [place] (1.001-1.035) Urine Protein (Negative) Urine Glucose (UA) (Negative) Urine Ketones (Negative) Urine Blood (Negative) Urine Nitrite (Negative) Urine Bilirubin (Negative) Urine Urobilinogen (<2.0) mg/dL Ur Leukocyte Esterase (Negative) Urine RBC (0-5) /hpf Urine WBC (0-5) /hpf Urine Bacteria (None) /hpf Urine Mucus (None) /hpf Influenza Type A (PCR) (Not Detectd) Influenza Type B (PCR) (Not Detectd) RSV (PCR) (Not Detectd) SARS-CoV-2 (PCR) (Not Detectd) 09/09/24 09/09/24 Range/Units 18:00 18:56 WBC (4.50-10.00) 10*3/uL RBC (4.10-5.20) 10*6/uL Hgb (12.0-15.0) g/dL Hct (37.2-46.3) % MCV (80.0-97.0) fL MCH (27.0-32.0) pg MCHC (32.0-37.0) g/dL Plt Count (140-440) 10*3/uL MPV (9.5-12.2) fL Immature Gran % (Auto) % Neutrophils % % Lymphocytes % % Monocytes % % Eosinophils % % Basophils % % Immature Gran # (0.00-0.04) 10*3/uL Neutrophils # (1.80-7.70) 10*3/uL Lymphocytes # (0.90-5.00) 10*3/uL Monocytes # (0.20-1.00) 10*3/uL Eosinophils # (0.04-0.35) 10*3/uL Basophils # (0.00-0.10) 10*3/uL Sodium (137-145) mmol/L Potassium (3.5-5.1) mmol/L Chloride (98-107) mmol/L Carbon Dioxide (22-30) mmol/L Anion Gap mmol/L BUN (7-17) mg/dL Creatinine (0.52-1.04) mg/dL Est GFR (CKD-EPI)AfAm (>60 ml/min/1.73 sqM) Est GFR (CKD-EPI)NonAf (>60 ml/min/1.73 sqM) Glucose (74-99) mg/dL Plasma Lactic Acid [place] (0.7-2.0) mmol/L Calcium (8.4-10.2) mg/dL Total Bilirubin (0.2-1.3) mg/dL AST (14-36) U/L ALT (4-34) U/L Alkaline Phosphatase (38-126) U/L Total Protein (6.3-8.2) g/dL Albumin (3.5-5.0) g/dL Amylase (30-110) U/L Lipase (23-300) U/L Urine Color Light Yellow Urine Appearance Clear (Clear) Urine pH 5.5 (5.0-8.0) Ur Specific [place] 1.006 (1.001-1.035) Urine Protein Negative (Negative) Urine Glucose (UA) 4+ H (Negative) Urine Ketones Negative (Negative) Urine Blood Negative (Negative) Urine Nitrite Negative (Negative) Urine Bilirubin Negative (Negative) Urine Urobilinogen <2.0 (<2.0) mg/dL Ur Leukocyte Esterase Trace H (Negative) Urine RBC 1 (0-5) /hpf Urine WBC 3 (0-5) /hpf Urine Bacteria Rare H (None) /hpf Urine Mucus Rare H (None) /hpf Influenza Type A (PCR) Not Detected (Not Detectd) Influenza Type B (PCR) Not Detected (Not Detectd) RSV (PCR) Not Detected (Not Detectd) SARS-CoV-2 (PCR) Not Detected (Not Detectd) - Radiology Data Radiology results: report reviewed, image reviewed Disposition Clinical Impression: Transaminitis, Abnormal CT scan Disposition: [facility] Condition: Stable Time of Disposition: 20:01
[2024-09-09] MEDS: SODIUM CHLORIDE 0.9% 500 ML 500 ML IV ONE (18:09)
[2024-09-09] MEDS: KETOROLAC 15 MG/ML 1 ML VIAL IVP STA (18:09)
[2024-09-09 18:28] LABS: ALT 361 U/L (4-34); AST 353 U/L (14-36); African American GFR (CKD) >90 (>60 ml/min/1.73 sqM); Alkaline Phosphatase 1282 U/L (38-126); Amylase 40 U/L (30-110); Anion Gap 12 mmol/L; Blood Urea Nitrogen 12 mg/dL (7-17); Carbon Dioxide 20 mmol/L (22-30); Chloride 106 mmol/L (98-107); Glucose 154 mg/dL (74-99); Lipase 40 U/L (23-300); Non-African American GFR(CKD) 86 (>60 ml/min/1.73 sqM); Potassium 4.2 mmol/L (3.5-5.1); Sodium 138 mmol/L (137-145); Total Bilirubin 2.7 mg/dL (0.2-1.3); Total Protein 7.4 g/dL (6.3-8.2)
[2024-09-09 18:44] LABS: Influenza A Not Detected (Not Detectd); Influenza B Not Detected (Not Detectd); RSV Not Detected (Not Detectd)
[2024-09-09] MEDS: methylPREDNISolone SOD SUCCI 125 MG/2 ML VIAL IV STA (18:45)
[2024-09-09] MEDS: FAMOTIDINE 20 MG/2 ML VIAL IV STA (18:46)
[2024-09-09] MEDS: diphenhydrAMINE 50 MG/ML 1 ML VIAL IVP STA (18:46)
[2024-09-09] MEDS: hydrALAZINE HCL 20 MG/ML 1 ML VIAL IVP STA ×2 (18:53→21:09)
[2024-09-09 19:28] LABS: Appearance,Urine Clear (Clear); Bacteria,Urine Rare /hpf; Bilirubin,Urine Negative (Negative); Blood,Urine Negative (Negative); Color,Urine Light Yellow; Glucose,Urine (UA) 4+ (Negative); Ketones,Urine Negative (Negative); Leukocyte Esterase,Urine Trace (Negative); Mucus,Urine Rare /hpf; Nitrite,Urine Negative (Negative); PH, Urine 5.5 (5.0-8.0); Protein,Urine Negative (Negative); RBC,Urine 1 /hpf (0-5); Specific Gravity,Urine 1.006 (1.001-1.035); Urobilinogen,Urine <2.0 mg/dL (<2.0); WBC,Urine 3 /hpf (0-5)
--- NOTE | 2024-09-09 19:46 | CT ---
EXAMINATION TYPE: CT abdomen pelvis w con DATE OF EXAM: 09/09/2024 COMPARISON: CTA aorta August 24, 2022 CLINICAL INDICATION: Female, 79 years old with history of generalized abd pain/transaminitis, abdomin al pain, TECHNIQUE: CT scan of the abdomen and pelvis is performed with IV Contrast, patient injected with 80 mL of Isovu e 300., (none if empty) Oral contrast used: without Oral Contrast (none if empty) CT DLP: 543.9 mGycm, Automated exposure control for dose reduction was used. FINDINGS: LUNG BASES: Calcification along the mitral valve is redemonstrated. Persistent small to moderate size left atrial dilatation. LIVER/GB:. Cholecystectomy clips are redemonstrated. There is new moderate intrahepatic and extrahepa tic biliary dilatation up to 20 mm coronal image 32. PANCREAS: There is heterogeneous hypodense mass or neoplasm in the pancreatic head measuring approxim ately 6.4 x 5.9 cm axial image 30. There is new ductal dilatation of the pancreas up to 8 mm with abr upt cut off axial image 27. There is generalized atrophy of the distal body and tail. There is modera te ill-defined fluid and fat stranding in the pancreatic head. There appears to be encasement of port ions of the SMA. SPLEEN: No significant abnormality is seen. ADRENALS: No significant abnormality is seen. KIDNEYS: Mild to moderately distended bladder. Stable 1.3 cm incidental simple appearing thin-walled cyst in the left kidney delayed axial image 29 is redemonstrated. Smaller simple cyst lower pole leve l centrally and left kidney are redemonstrated. BOWEL: Moderate wall thickening of the duodenal sweep is present. No abnormal small or large bowel di latation is seen. UTERUS/ADNEXA: Uterus is surgically absent. LYMPH NODES: No greater than 1cm abdominal or pelvic lymph nodes are appreciated. OSSEOUS STRUCTURES: [id number] disc space narrowing and vacuum disc phenomenon at the L4-L5 l evel is redemonstrated. Moderate narrowing of both hip joints. OTHER: [id number] peripheral calcified plaque of the aorta extends into branch vessels. IMPRESSION: Heterogeneous hypodense large pancreatic head area with suspected underlying neoplasm. Th ere is new distal pancreatic ductal dilatation and moderate biliary dilatation. Underlying acute panc reatitis also suspected. Correlate clinically and with pancreatic laboratory values. Reactive duodeni tis suspected. Correlate clinically. [facility], , 09/09/2024 7:44 PM
[2024-09-09] MEDS ORDERED: NALOXONE 0.4 MG/ML 1 ML VIAL IV PRN (19:59)
[2024-09-09] MEDS ORDERED: ONDANSETRON 4 MG/2 ML VIAL IVP PRN (19:59)
[2024-09-09] MEDS: SODIUM CHLORIDE 0.9% 1,000 ML IV SCH (21:10)
[2024-09-09 22:21] LABS: Glucose,Whole Blood 116 mg/dL (70-110)
[2024-09-10 07:10] LABS: Glucose,Whole Blood 162 mg/dL (70-110)
[2024-09-10] MEDS: carvediloL 3.125 MG TAB PO SCH (08:55)
[2024-09-10] MEDS: LOSARTAN 50 MG TAB PO SCH (08:56)
[2024-09-10] MEDS: ASPIRIN 81 MG PO SCH (08:56)
[2024-09-10] MEDS ORDERED: DEXTROSE 50% SYRINGE 50 ML IVP PRN ×2 (09:41)
[2024-09-10 10:05] LABS: ALT 291 U/L (4-34); AST 203 U/L (14-36); African American GFR (CKD) >90 (>60 ml/min/1.73 sqM); Albumin 3.8 g/dL (3.5-5.0); Albumin/Globulin Ratio 1.3; Alkaline Phosphatase 1167 U/L (38-126); Anion Gap 12 mmol/L; Blood Urea Nitrogen 18 mg/dL (7-17); Calcium 9.4 mg/dL (8.4-10.2); Carbon Dioxide 19 mmol/L (22-30); Chloride 104 mmol/L (98-107); Globulin 2.9 g/dL; Glucose 310 mg/dL (74-99); Non-African American GFR(CKD) 84 (>60 ml/min/1.73 sqM); Potassium 3.9 mmol/L (3.5-5.1); Sodium 135 mmol/L (137-145); Total Protein 6.7 g/dL (6.3-8.2)
[2024-09-10 10:20] LABS: Prothrombin Time 11.3 sec (10.0-12.5)
[2024-09-10 12:08] LABS: Glucose,Whole Blood 293 mg/dL (70-110)
--- NOTE | 2024-09-10 12:25 | P.CONS ---
History of Present Illness - Reason for Consult Consult date: 09/10/24 Transaminitis/abnormal CT Requesting physician: Flaquita Courtney - Chief Complaint Weakness, weight loss - History of Present Illness This a pleasant 79-year-old female with a history of diabetes mellitus, hypertension, ascending aortic aneurysm, right upper extremity arterial stenting who had presented to the emergency department yesterday with complaints of increased weakness, fatigue, shortness of breath, abdominal discomfort and gas, decreased appetite, weight loss over 20 pounds since May and jaundice. Patient states she had recently seen her bicycle inspector Dr. Jackson who watches over her ascending aortic aneurysm but believed her symptoms were not cardiac related and sent her back to her primary care physician Dr. Odom who had told her to come to the emergency department for further evaluation. She was noted to have elevated LFTs and elevated bilirubin on admission. She had a CAT scan of the abdomen pelvis with heterogeneous hypodense large pancreatic head mass measuring approximately 6.4 x 5.9 cm with ductal dilation, with suspected underlying neoplasm and also underlying acute pancreatitis. Patient denies any abdominal pain at this time. States yesterday she felt pretty good in the evening however she did not eat yesterday and states her abdominal bloating improved. She had some pancakes for breakfast this morning and states that after she felt full and some bloating and mild discomfort. No nausea or vomiting. States that she lost 6 pounds in the last week duration. Denies any previous history of pancreatitis or liver disease. Last colonoscopy was about 4 years ago in [place] and states it was normal. Admitting labs WBC 4.8 hemoglobin 15.4 hematocrit 44 platelet count 221,000 sodium 138 potassium 4.2 BUN 12 creatinine 0.5 glucose 154 total bilirubin 2.7 AST 353 ALT 361 alkaline phosphatase 1282 amylase 40 lipase 40 Review of Systems REVIEW OF SYSTEMS: CARDIOPULMONARY: No chest pain. Positive for shortness of breath. Gastrointestinal: Diffuse abdominal discomfort and bloating. Decreased appetite. Unintentional weight loss greater than 20 pounds over last 4 months. No nausea or vomiting. No hematemesis, coffee-ground emesis. No rectal bleeding, or melena. GENITOURINARY: No dysuria or hematuria. MUSCULOSKELETAL: Reports normal range of motion., Joint pain. SKIN: No rashes. Mild jaundice noticed over the last couple days. ENDOCRINE: No chills, fevers. Over 20 pound weight loss in last 4 months, unintentional. No polydipsia or polyuria. PSYCHIATRIC: Unremarkable. NEUROLOGY: No change in mental status. Denies dizziness, headache. ENT: Vision unremarkable. CONSTITUTIONAL: N weakness, fatigue. Unintentional weight loss. No fever, chills, night sweats. Past Medical History Past Medical History: Diabetes Mellitus, Hypertension Additional Past Medical History / Comment(s): aorticc aneursym History of Any Multi-Drug Resistant Organisms: None Reported Past Surgical History: Heart Catheterization, Hysterectomy Additional Past Surgical History / Comment(s): RIGHT ARM ARTERIAL STENTS Past Anesthesia/Blood Transfusion Reactions: No Reported Reaction Past Psychological History: No Psychological Hx Reported Smoking Status: Never smoker Past Alcohol Use History: None Reported Past Drug Use History: None Reported - Past Family History Mother Family Medical History: Coronary Artery Disease (CAD), Diabetes Mellitus Additional Family Medical History / Comment(s): cystic fibrosis Sister(s) Family Medical History: Diabetes Mellitus Father Family Medical History: Coronary Artery Disease (CAD), Diabetes Mellitus Additional Family Medical History / Comment(s): fathers sisters all had pancreatic CA Medications and Allergies Home Medications Medication Instructions Recorded Confirmed Type Aspirin EC [Ecotrin Low Dose] 81 mg PO DAILY 08/24/22 09/09/24 History Docusate [Colace] 100 mg PO Q2D PRN 08/24/22 09/09/24 History Empagliflozin [Jardiance] 25 mg PO DAILY 08/24/22 09/09/24 History Losartan Potassium [Cozaar] 100 mg PO DAILY 08/24/22 09/09/24 History Insulin Aspart (Niacinamide) See Protocol SQ AC-TID 09/09/24 09/09/24 History [Fiasp 100 Unit/ml Flextouch Pen] Insulin Degludec [Tresiba 7 units SQ DAILY 09/09/24 09/09/24 History Flextouch U-100 Pen] Nitroglycerin Sl Tabs [Nitrostat] 0.4 mg SL Q5M PRN 09/09/24 09/09/24 History carvediloL [Coreg] 3.125 mg PO BID 09/09/24 09/09/24 History Allergies Allergy/AdvReac Type Severity Reaction Status Date / Time Iodinated Contrast Media Allergy Anaphylaxis Verified 09/09/24 17:51 Sulfa (Sulfonamide Allergy Unknown Verified 09/09/24 17:51 Antibiotics) iv dye Allergy Anaphylaxis Uncoded 09/09/24 17:51 Physical Exam Vitals: Vital Signs Temp Pulse Pulse Resp BP BP Pulse Ox 09/10/24 07:04 97.7 F 69 16 177/74 98 09/10/24 01:40 97.9 F 83 16 128/68 98 09/09/24 21:49 97.5 F L 82 16 170/75 99 09/09/24 21:21 97.9 F 74 17 173/67 98 09/09/24 19:16 83 17 182/86 100 09/09/24 18:46 66 16 208/86 97 09/09/24 17:32 97.5 F L 69 20 215/89 98 Intake and Output 09/09/24 09/10/24 09/10/24 22:59 06:59 14:59 Intake Total 590 Balance 590 Intake: Oral 590 Other: Voiding Method Toilet # Voids 2 Weight 54.431 kg General appearance: The patient is alert, oriented, appears in no acute distress. HET: Head is normocephalic and atraumatic. Conjunctiva pink. Sclera anicteric. Neck: Supple without lymphadenopathy. Trachea midline. Heart: Regular. Lungs: Equal expansion, normal respiratory effort. Abdomen: Soft, nontender, nondistended. Skin: No rashes. Mild jaundice. Extremities: Normal skin color and turgor. No pedal edema. Neurological: No focal deficits. Alert and oriented x3. Results CBC & Chem 7: 09/09/24 17:53 09/10/24 09:26 Labs: Abnormal Lab Results - Last 24 Hours (Table) 09/09/24 09/09/24 09/09/24 Range/Units 17:53 17:53 18:56 Hgb 15.4 H (12.0-15.0) g/dL Carbon Dioxide 20 L (22-30) mmol/L Glucose 154 H (74-99) mg/dL POC Glucose (mg/dL) (70-110) mg/dL Total Bilirubin 2.7 H (0.2-1.3) mg/dL AST 353 H (14-36) U/L ALT 361 H (4-34) U/L Alkaline Phosphatase 1282 H (38-126) U/L Urine Glucose (UA) 4+ H (Negative) Ur Leukocyte Esterase Trace H (Negative) Urine Bacteria Rare H (None) /hpf Urine Mucus Rare H (None) /hpf 09/09/24 09/10/24 Range/Units 22:19 07:08 Hgb (12.0-15.0) g/dL Carbon Dioxide (22-30) mmol/L Glucose (74-99) mg/dL POC Glucose (mg/dL) 116 H 162 H (70-110) mg/dL Total Bilirubin (0.2-1.3) mg/dL AST (14-36) U/L ALT (4-34) U/L Alkaline Phosphatase (38-126) U/L Urine Glucose (UA) (Negative) Ur Leukocyte Esterase (Negative) Urine Bacteria (None) /hpf Urine Mucus (None) /hpf Comments: CT abdomen pelvis with contrast reports heterogeneous hypodense large pancreatic head area with suspected underlying neoplasm. There is new distal pancreatic ductal dilation and moderate biliary dilation. Underlying acute pancreatitis also suspected. Correlate clinically with pancreatic laboratory values. Reactive duodenitis suspected. Correlate clinically. Assessment and Plan (1) Transaminitis Narrative/Plan: 79-year-old female presenting for shortness of breath, fatigue and weakness along with greater than 20 pound weight loss in the last 4 months duration 6 pounds over the last 1 week duration with decreased appetite. Noted to have elevated total bilirubin AST ALT and alkaline phosphatase. Secondary to transaminitis CT abdomen pelvis was performed with pancreatic head mass 6.4 x 5.9 cm with biliary dilation noted concerning for neoplasm. CA 19-9 ordered, will trend LFTs. MRI/MRCP of pancreas pancreatic mass protocol ordered. Will need to consider oncology consultation. Patient will likely need referral to advanced clinical instructor for ERCP with EUS. Current Visit: Yes Status: Acute Code(s): R74.01 - ELEVATION OF LEVELS OF LIVER TRANSAMINASE LEVELS SNOMED Code(s): 405103866 (2) Mass of head of pancreas Current Visit: Yes Status: Acute Code(s): K86.89 - OTHER SPECIFIED DISEASES OF PANCREAS SNOMED Code(s): 589358242 (3) Abnormal CT scan Current Visit: Yes Status: Acute Code(s): R93.89 - ABNORMAL FINDINGS ON DX IMAGING OF OTH BODY STRUCTURES SNOMED Code(s): 493915959 (4) Unintentional weight loss Current Visit: Yes Status: Acute Code(s): R63.4 - ABNORMAL WEIGHT LOSS SNOMED Code(s): 942282816 (5) Diabetes mellitus Current Visit: Yes Status: Acute Code(s): E11.9 - TYPE 2 DIABETES MELLITUS WITHOUT COMPLICATIONS SNOMED Code(s): 03658206 (6) Weakness Current Visit: Yes Status: Acute Code(s): R53.1 - WEAKNESS SNOMED Code(s): 17912190 (7) Decreased appetite Current Visit: Yes Status: Acute Code(s): R63.0 - ANOREXIA SNOMED Code(s): 38530260 Plan: 1. Continue symptomatic and supportive care 2. Diet as tolerated 3. CA 19-9, INR ordered 4. Daily CMP 5. MRI/MRCP pancreas ordered with pancreatic mass protocol 6. Patient will likely need referral/consultation with oncology 7. Patient will require ERCP with EUS, due to symptoms and size of mass recommend try to transfer to tertiary center for higher level of care. Thank you for this consultation, we will continue to follow and give recommendations along the way. Dr. Irina Akbar I agree with the dictator's note, documented as a scribe by Jamee Souza.
--- NOTE | 2024-09-10 12:58 | P.GSCN ---
History of Present Illness Consult date: 09/10/24 History of present illness: CHIEF COMPLAINT: Abdominal pain HISTORY OF PRESENT ILLNESS: This is a 79-year-old female who presented to hospital with epigastric and right sided abdominal pain. She reports this pain has been ongoing for about 7 weeks. Patient reports that it has worsened over the last 3 weeks. She is becoming weaker and fatigued. She reports her blood sugars have been fluctuating. She reports pain after eating. She has early fullness after eating. She reports having bowel movements that have been soft and light in color. She is having flatus. She has been nauseous and having a lot of belching. She describes the pain as a rolling sensation throughout her abdomen. She has had about a 10 pound weight loss since May. She also reports feeling short of breath. She had a CT scan abdomen pelvis that reported a hypodense mass in the head of the pancreas measuring 6.4 x 5.9 cm. Her total bilirubin and LFTs have been elevated. She has a past surgical history of a cholecystectomy and appendectomy. Patient also being evaluated by GI service they have ordered an MRI of the pancreas. PAST MEDICAL HISTORY: Diabetes, hypertension, aortic aneurysm PAST SURGICAL HISTORY: Heart catheterization, right arm arterial stents, cholecystectomy and appendectomy MEDICATIONS: See below ALLERGIES: See below SOCIAL HISTORY: No illicit drug use. REVIEW OF SYSTEMS: CONSTITUTIONAL: Denies fever or chills. HEENT: Denies blurred vision, vision changes, or eye pain. Denies hemoptysis CARDIOVASCULAR: Denies chest pain or pressure. RESPIRATORY: No shortness of breath. GASTROINTESTINAL: See HPI for pertinent findings HEMATOLOGIC: Denies bleeding disorders. GENITOURINARY: Denies any blood in urine or increased urinary frequency. SKIN: Denies pruitis. Denies rash. PHYSICAL EXAM: VITAL SIGNS: Reviewed GENERAL: Well-developed in no acute distress. HEENT: No sclera icterus. Extraocular movements grossly intact. Moist buccal mucosa. Head is atraumatic, normocephalic. No nasal drainage. ABDOMEN: Soft. Nondistended. Tenderness palpation epigastric area and along the right mid and lower side of the abdomen NEUROLOGIC: Alert and oriented. Cranial nerves II through XII grossly intact. LABORATORY DATA: WBC 4.81 Hgb 15.4 platelets 221 Sodium 135 potassium 3.9 creatinine 0.64 Total bilirubin 2.7 down to 2.0 elevated LFTs Lipase 40 IMAGING: CT scan abdomen pelvis reports heterogenous hypodense large pancreatic head area with suspected underlying neoplasm. There is new distal pancreatic ductal dilatation and moderate biliary dilatation. Underlying acute pancreatitis also suspected. Reactive duodenitis suspected ASSESSMENT: 1. Epigastric and right sided abdominal pain 2. Pancreatic head mass PLAN: - Patient seen by GI service and MRI of the pancreas has been ordered - Recommend workup of pancreatic head mass - No surgical intervention planned at this time Physician Trailer Truck Driver note has been reviewed by physician. Signing provider agrees with the documented findings, assessment, and plan of care. Past Medical History Past Medical History: Diabetes Mellitus, Hypertension Additional Past Medical History / Comment(s): aorticc aneursym History of Any Multi-Drug Resistant Organisms: None Reported Past Surgical History: Heart Catheterization, Hysterectomy Additional Past Surgical History / Comment(s): RIGHT ARM ARTERIAL STENTS Past Anesthesia/Blood Transfusion Reactions: No Reported Reaction Past Psychological History: No Psychological Hx Reported Smoking Status: Never smoker Past Alcohol Use History: None Reported Past Drug Use History: None Reported - Past Family History Mother Family Medical History: Coronary Artery Disease (CAD), Diabetes Mellitus Additional Family Medical History / Comment(s): cystic fibrosis Sister(s) Family Medical History: Diabetes Mellitus Father Family Medical History: Coronary Artery Disease (CAD), Diabetes Mellitus Additional Family Medical History / Comment(s): fathers sisters all had pancreatic CA Medications and Allergies Home Medications Medication Instructions Recorded Confirmed Type Aspirin EC [Ecotrin Low Dose] 81 mg PO DAILY 08/24/22 09/09/24 History Docusate [Colace] 100 mg PO Q2D PRN 08/24/22 09/09/24 History Empagliflozin [Jardiance] 25 mg PO DAILY 08/24/22 09/09/24 History Losartan Potassium [Cozaar] 100 mg PO DAILY 08/24/22 09/09/24 History Insulin Aspart (Niacinamide) See Protocol SQ AC-TID 09/09/24 09/09/24 History [Fiasp 100 Unit/ml Flextouch Pen] Insulin Degludec [Tresiba 7 units SQ DAILY 09/09/24 09/09/24 History Flextouch U-100 Pen] Nitroglycerin Sl Tabs [Nitrostat] 0.4 mg SL Q5M PRN 09/09/24 09/09/24 History carvediloL [Coreg] 3.125 mg PO BID 09/09/24 09/09/24 History Allergies Allergy/AdvReac Type Severity Reaction Status Date / Time Iodinated Contrast Media Allergy Anaphylaxis Verified 09/09/24 17:51 Sulfa (Sulfonamide Allergy Unknown Verified 09/09/24 17:51 Antibiotics) iv dye Allergy Anaphylaxis Uncoded 09/09/24 17:51 Surgical - Exam Vital Signs Temp Pulse Resp BP Pulse Ox 97.5 F L 69 20 215/89 98 09/09/24 17:32 09/09/24 17:32 09/09/24 17:32 09/09/24 17:32 09/09/24 17:32 Results - Labs 09/09/24 17:53 09/10/24 09:26 Abnormal Lab Results - Last 24 Hours (Table) 09/09/24 09/09/24 09/09/24 Range/Units 17:53 17:53 18:56 Hgb 15.4 H (12.0-15.0) g/dL Sodium (137-145) mmol/L Carbon Dioxide 20 L (22-30) mmol/L BUN (7-17) mg/dL Glucose 154 H (74-99) mg/dL POC Glucose (mg/dL) (70-110) mg/dL Total Bilirubin 2.7 H (0.2-1.3) mg/dL AST 353 H (14-36) U/L ALT 361 H (4-34) U/L Alkaline Phosphatase 1282 H (38-126) U/L Urine Glucose (UA) 4+ H (Negative) Ur Leukocyte Esterase Trace H (Negative) Urine Bacteria Rare H (None) /hpf Urine Mucus Rare H (None) /hpf 09/09/24 09/10/24 09/10/24 Range/Units 22:19 07:08 09:26 Hgb (12.0-15.0) g/dL Sodium 135 L (137-145) mmol/L Carbon Dioxide 19 L (22-30) mmol/L BUN 18 H (7-17) mg/dL Glucose 310 H (74-99) mg/dL POC Glucose (mg/dL) 116 H 162 H (70-110) mg/dL Total Bilirubin 2.0 H (0.2-1.3) mg/dL AST 203 H (14-36) U/L ALT 291 H (4-34) U/L Alkaline Phosphatase 1167 H (38-126) U/L Urine Glucose (UA) (Negative) Ur Leukocyte Esterase (Negative) Urine Bacteria (None) /hpf Urine Mucus (None) /hpf 09/10/24 Range/Units 12:07 Hgb (12.0-15.0) g/dL Sodium (137-145) mmol/L Carbon Dioxide (22-30) mmol/L BUN (7-17) mg/dL Glucose (74-99) mg/dL POC Glucose (mg/dL) 293 H (70-110) mg/dL Total Bilirubin (0.2-1.3) mg/dL AST (14-36) U/L ALT (4-34) U/L Alkaline Phosphatase (38-126) U/L Urine Glucose (UA) (Negative) Ur Leukocyte Esterase (Negative) Urine Bacteria (None) /hpf Urine Mucus (None) /hpf Diabetes panel 09/09/24 09/10/24 Range/Units 17:53 09:26 Sodium 138 135 L (137-145) mmol/L Potassium 4.2 3.9 (3.5-5.1) mmol/L Chloride 106 104 (98-107) mmol/L Carbon Dioxide 20 L 19 L (22-30) mmol/L BUN 12 18 H (7-17) mg/dL Creatinine 0.59 0.64 (0.52-1.04) mg/dL Glucose 154 H 310 H (74-99) mg/dL Calcium 10.0 9.4 (8.4-10.2) mg/dL AST 353 H 203 H (14-36) U/L ALT 361 H 291 H (4-34) U/L Alkaline Phosphatase 1282 H 1167 H (38-126) U/L Total Protein 7.4 6.7 (6.3-8.2) g/dL Albumin 4.0 3.8 (3.5-5.0) g/dL Calcium panel 09/09/24 09/10/24 Range/Units 17:53 09:26 Calcium 10.0 9.4 (8.4-10.2) mg/dL Albumin 4.0 3.8 (3.5-5.0) g/dL Pituitary panel 09/09/24 09/10/24 Range/Units 17:53 09:26 Sodium 138 135 L (137-145) mmol/L Potassium 4.2 3.9 (3.5-5.1) mmol/L Chloride 106 104 (98-107) mmol/L Carbon Dioxide 20 L 19 L (22-30) mmol/L BUN 12 18 H (7-17) mg/dL Creatinine 0.59 0.64 (0.52-1.04) mg/dL Glucose 154 H 310 H (74-99) mg/dL Calcium 10.0 9.4 (8.4-10.2) mg/dL Adrenal panel 09/09/24 09/10/24 Range/Units 17:53 09:26 Sodium 138 135 L (137-145) mmol/L Potassium 4.2 3.9 (3.5-5.1) mmol/L Chloride 106 104 (98-107) mmol/L Carbon Dioxide 20 L 19 L (22-30) mmol/L BUN 12 18 H (7-17) mg/dL Creatinine 0.59 0.64 (0.52-1.04) mg/dL Glucose 154 H 310 H (74-99) mg/dL Calcium 10.0 9.4 (8.4-10.2) mg/dL Total Bilirubin 2.7 H 2.0 H (0.2-1.3) mg/dL AST 353 H 203 H (14-36) U/L ALT 361 H 291 H (4-34) U/L Alkaline Phosphatase 1282 H 1167 H (38-126) U/L Total Protein 7.4 6.7 (6.3-8.2) g/dL Albumin 4.0 3.8 (3.5-5.0) g/dL
[2024-09-10] MEDS: methylPREDNISolone SOD SUCCI 125 MG/2 ML VIAL IV STA (13:08)
[2024-09-10] MEDS: diphenhydrAMINE 50 MG/ML 1 ML VIAL IVP STA (13:08)
[2024-09-10] MEDS: INSULIN LISPRO (HumaLOG) 100 UNIT/ML 10 mL VL SQ SCH (13:09)
[2024-09-10] MEDS: FAMOTIDINE 20 MG/2 ML VIAL IV STA (13:09)
--- NOTE | 2024-09-10 15:20 | P.HPIM ---
History of Present Illness H&P Date: 09/10/24 History of present illness; Patient is 79-year-old female with hypertension, diabetes mellitus and ascending aortic aneurysm presenting with weakness and abdominal pain. She was seen by her PCP for her symptoms and jaundice who directed her to come to hospital for further evaluation. She is experiencing a generalized abdominal discomfort over the last 7 weeks. She characterizes pain as achy and generalized. She also has frequent belching. She denies any nausea, vomiting, diarrhea or constipation. Denies any hematochezia or melena. She also admits to occasional chills but denies any known fevers. She states on Monday she noticed her urine to be extremely dark and is concerned she is also dehydrated. Patient reports since May she has lost approximately 20 pounds, including 6 pounds in the last 2 weeks accompanied with extreme weakness and lethargy during this time. Patient admits to a history of cholecystectomy and appendectomy. No history of bowel resections. Patient states she had has a colonoscopy in the past. Patient denies any dizziness, lightheadedness, chest pain, shortness of breath or peripheral edema. Spoke with the ER physician, patient admission was accepted by internal medicine service for treatment. REVIEW OF SYSTEMS: Pertinent positives and negatives noted in HPI. PHYSICAL EXAMINATION: Vitals reviewed GENERAL: Resting comfortably in bed. EYES: PERRL, no scleral injection, mild scleral icterus. No vision loss HENT: Normocephalic, atraumatic, hearing grossly intact, moist mucous membranes NECK: No tracheal deviation, full range of motion. CARDIOVASCULAR: S1 and S2 present. No murmurs, rubs, or gallops. PULMONARY: Chest is clear to auscultation, no wheezing, rhonchi, or crackles. ABDOMEN: Soft, mild generalized tenderness, nondistended. No palpable organomegaly. MUSCULOSKELETAL: No apparent joint swelling and deformities. EXTREMITIES: No apparent cyanosis, clubbing. No pedal edema. NEUROLOGICAL: Alert and oriented. Gross neurological examination with no apparent focal deficits. SKIN: No apparent rashes. ER FINDINGS: Labs significant for hemoglobin 15.4, bicarbonate 20, glucose 154, total bilirubin 2.7, AST 353, ALT 361, alkaline phosphatase 1282, amylase 40, lipase 40, UA significant for glucose 4+, viral respiratory panel negative EKG independently interpreted showed sinus rhythm heart rate of 60, QTc 452, first-degree heart block, no ST segment elevation or depression seen, no T-wave inversions seen. CT abdomen pelvis independently interpreted with findings of heterogeneous hypodense large pancreatic head with suspected underlying neoplasm. New distal pancreatic ductal dilation and moderate bilateral dilation. Underlying acute pancreatitis suspected. Reactive duodenitis suspected. Assessment and Plan: In summary, patient is 79-year-old female with hypertension, diabetes mellitus and ascending aortic aneurysm presenting with weakness and abdominal pain. 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 #Unintentional weight loss #Decreased appetite #Transaminitis CT abdomen pelvis with heterogeneous hypodense large pancreatic head total bilirubin 2.7, AST 353, ALT 361, alkaline phosphatase 1282 MRCP pending Cancer antigen 19.9 and INR ordered Surgery consulted, notes reviewed Oncology consulted GI consulted, recommends ERCP with EUS and transfer to [facility] for higher level of care #Diabetes mellitus, type 2 Holding oral medications Begin Accu-Cheks and low-dose sliding scale, monitor for hypoglycemia HbA1c pending Chronic Medical Conditions #Hypertension #AAA Resume home medications DVT ppx: Subq Lovenox 40 meq daily Code status: No code F: IV Normal saline 75 mL/hr E: Replete as needed N: Consistent carb diet Anticipated discharge place: Transfer for higher level of care Anticipated discharge time: When bed available Dictation was produced using [employer] dictation software. Please excuse any grammatical, word or spelling errors. Past Medical History Past Medical History: Diabetes Mellitus, Hypertension Additional Past Medical History / Comment(s): aorticc aneursym History of Any Multi-Drug Resistant Organisms: None Reported Past Surgical History: Heart Catheterization, Hysterectomy Additional Past Surgical History / Comment(s): RIGHT ARM ARTERIAL STENTS Past Anesthesia/Blood Transfusion Reactions: No Reported Reaction Past Psychological History: No Psychological Hx Reported Smoking Status: Never smoker Past Alcohol Use History: None Reported Past Drug Use History: None Reported - Past Family History Mother Family Medical History: Coronary Artery Disease (CAD), Diabetes Mellitus Additional Family Medical History / Comment(s): cystic fibrosis Sister(s) Family Medical History: Diabetes Mellitus Father Family Medical History: Coronary Artery Disease (CAD), Diabetes Mellitus Additional Family Medical History / Comment(s): fathers sisters all had pancreatic CA Medications and Allergies Home Medications Medication Instructions Recorded Confirmed Type Aspirin EC [Ecotrin Low Dose] 81 mg PO DAILY 08/24/22 09/09/24 History Docusate [Colace] 100 mg PO Q2D PRN 08/24/22 09/09/24 History Empagliflozin [Jardiance] 25 mg PO DAILY 08/24/22 09/09/24 History Losartan Potassium [Cozaar] 100 mg PO DAILY 08/24/22 09/09/24 History Insulin Aspart (Niacinamide) See Protocol SQ AC-TID 09/09/24 09/09/24 History [Fiasp 100 Unit/ml Flextouch Pen] Insulin Degludec [Tresiba 7 units SQ DAILY 09/09/24 09/09/24 History Flextouch U-100 Pen] Nitroglycerin Sl Tabs [Nitrostat] 0.4 mg SL Q5M PRN 09/09/24 09/09/24 History carvediloL [Coreg] 3.125 mg PO BID 09/09/24 09/09/24 History Allergies Allergy/AdvReac Type Severity Reaction Status Date / Time Iodinated Contrast Media Allergy Anaphylaxis Verified 09/09/24 17:51 Sulfa (Sulfonamide Allergy Unknown Verified 09/09/24 17:51 Antibiotics) iv dye Allergy Anaphylaxis Uncoded 09/09/24 17:51 Physical Exam Vitals: Vital Signs Temp Pulse Pulse Resp BP BP Pulse Ox 09/10/24 07:04 97.7 F 69 16 177/74 98 09/10/24 01:40 97.9 F 83 16 128/68 98 09/09/24 21:49 97.5 F L 82 16 170/75 99 09/09/24 21:21 97.9 F 74 17 173/67 98 09/09/24 19:16 83 17 182/86 100 09/09/24 18:46 66 16 208/86 97 09/09/24 17:32 97.5 F L 69 20 215/89 98 Intake and Output 09/09/24 09/10/24 09/10/24 22:59 06:59 14:59 Intake Total 590 Balance 590 Intake: Oral 590 Other: Voiding Method Toilet # Voids 2 Weight 54.431 kg Results CBC & Chem 7: 09/09/24 17:53 09/10/24 09:26 Labs: Abnormal Lab Results - Last 24 Hours (Table) 04/07/25 04/07/25 04/07/25 Range/Units 17:53 17:53 18:56 Hgb 15.4 H (12.0-15.0) g/dL Carbon Dioxide 20 L (22-30) mmol/L Glucose 154 H (74-99) mg/dL POC Glucose (mg/dL) (70-110) mg/dL Total Bilirubin 2.7 H (0.2-1.3) mg/dL AST 353 H (14-36) U/L ALT 361 H (4-34) U/L Alkaline Phosphatase 1282 H (38-126) U/L Urine Glucose (UA) 4+ H (Negative) Ur Leukocyte Esterase Trace H (Negative) Urine Bacteria Rare H (None) /hpf Urine Mucus Rare H (None) /hpf 09/09/24 09/10/24 Range/Units 22:19 07:08 Hgb (12.0-15.0) g/dL Carbon Dioxide (22-30) mmol/L Glucose (74-99) mg/dL POC Glucose (mg/dL) 116 H 162 H (70-110) mg/dL Total Bilirubin (0.2-1.3) mg/dL AST (14-36) U/L ALT (4-34) U/L Alkaline Phosphatase (38-126) U/L Urine Glucose (UA) (Negative) Ur Leukocyte Esterase (Negative) Urine Bacteria (None) /hpf Urine Mucus (None) /hpf Thrombosis Risk Factor Assmnt - Choose All That Apply Any of the Below Risk Factors Present?: No Each Risk Factor Represents 3 Points: Age 75 years or older Thrombosis Risk Factor Assessment Total Risk Factor Score: 3 Thrombosis Risk Factor Assessment Level: Moderate Risk
--- NOTE | 2024-09-10 15:59 | MR ---
EXAMINATION TYPE: MR pancreas / mrcp wo/w con DATE OF EXAM: 09/10/2024 3:13 PM INDICATION: Patient age:Female; 79 years old; Reason for study: pancreatic mass protocol; [facility]. COMPARISON: CT abdomen and pelvis 09/09/2024, CTA thoracoabdominal pelvis aorta 08/24/2022 TECHNIQUE: Multiplanar multi-sequence imaging was performed without and with IV contrast. The patien t was given 5.5 ccs of Gadobutrol intravenously and dynamic imaging was performed. Post IV contrast s ubtraction images were also submitted for review. Then, heavily T2 weighted imaging was utilized in o rder to study the biliary system. Maximum intensity projection images were reconstructed from the or iginal data of the biliary tree. FINDINGS: LOWER CHEST: No gross irregularity. ABDOMEN Gallbladder, liver, and Bile ducts: Gallbladder is surgically absent. Redemonstration of intrahepatic and extra hepatic biliary ductal dilatation. The common bile duct measures up to 10 mm at the pancre atic head. The common hepatic duct measures up to 16 mm with the left main hepatic duct measuring up to 13 mm. There is focal abrupt tapering of the common bile duct at the pancreatic head. No distinct filling defect identified within the bile ducts to suggest choledocholithiasis. Peripheral right hepa tic lobe 1.0 cm cyst. Pancreas: Dilated beaded appearance of the main pancreatic duct measuring up to 8 mm at the pancreati c neck. Additional dilated beaded appearance of the minor pancreatic duct measuring up to 4 mm. There is a abrupt tapering of both ducts at the pancreatic head. Possible pancreatic divisum. Abnormal heterogenous T2 hypointense pancreatic mass centered within the head and neck extending into the body of the pancreas measuring grossly 6.2 x 5.5 cm. This demonstrates heterogenous enhancement with abutment of the distal stomach and proximal to mid duodenum with loss of fat plane. There is abu tment without encasement of the GDA. There is encasement greater than 180 degrees involving the SMA. There is encasement with high-grade narrowing of the portal venous confluence and SMV. The main papi l vein and the splenic vein are patent. The mass demonstrates close proximity of the aorta, left jacob l artery and IVC with the appearance of preserved fat plane. Spleen: Unremarkable. Adrenal glands: Unremarkable. Kidneys: No hydronephrosis. Several bilateral T2 hyperintense thin-walled renal cysts with largest in the left kidney measuring up to 1.5 cm. Stomach and Bowel: Described above. No evidence for bowel obstruction. Peritoneum: No evidence of pneumoperitoneum, free fluid, or adenopathy. Vasculature: Unremarkable. No aortic aneurysm. Abdominal wall: Unremarkable. Musculoskeletal: The osseous structures appear intact. Multilevel degenerative disc disease. IMPRESSION: Redemonstration of heterogenous large pancreatic head mass with heterogenous regions of enhancement. This encases and narrows the common bile duct and pancreatic ducts resulting in intra and extra hepat ic biliary duct dilatation. 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 Encasement of the SMA with abutment of the GDA. Close proximity to surroundi ng structures as described above. Overall findings are highly concerning for malignant pancreatic steven plasm such as a neuroendocrine tumor versus pancreatic acinar cell carcinoma versus solid serous cyst adenoma versus other. [facility], , 09/10/2024 3:57 PM
[2024-09-10 17:30] VITALS: BMI 21.2
[2024-09-10 17:34] LABS: Glucose,Whole Blood 133 mg/dL (70-110)
[2024-09-10 20:28] LABS: Glucose,Whole Blood 222 mg/dL (70-110)
[2024-09-10] MEDS: INSULIN GLARGINE (LANTUS) 100 UNIT/ML SYR SQ SCH (20:31)
[2024-09-10] MEDS: PANTOPRAZOLE 40 MG/10 ML VIAL IVP SCH (21:40)
[2024-09-11 01:54] LABS: Glucose,Whole Blood 153 mg/dL (70-110)
[2024-09-11 06:07] LABS: Glucose,Whole Blood 130 mg/dL (70-110)
[2024-09-11 07:13] LABS: Glucose,Whole Blood 117 mg/dL (70-110)
[2024-09-11] MEDS: ENOXAPARIN 40 MG/0.4 ML SYRINGE SQ SCH (07:21)
[2024-09-11 08:23] LABS: Basophils # (A) 0.01 X 10*3/uL (0.00-0.10); Basophils % (A) 0.1 %; Eosinophils # (A) 0 X 10*3/uL (0.04-0.35); Eosinophils % (A) 0 %; HCT 41.1 % (37.2-46.3); HGB 13.5 g/dL (12.0-15.0); Lymphocytes # (A) 0.68 X 10*3/uL (0.90-5.00); Lymphocytes % (A) 9.1 %; MCH 30.4 pg (27.0-32.0); MCHC 32.8 g/dL (32.0-37.0); MCV 92.6 FL (80.0-97.0); Mean Platelet Volume 12.3 FL (9.5-12.2); Monocytes # (A) 0.22 X 10*3/uL (0.20-1.00); Monocytes % (A) 2.9 %; NRBC Per 100 WBC 0 X 10*3/uL (0.00-0.01); Neutrophils # (A) 6.53 X 10*3/uL (1.80-7.70); Neutrophils % (A) 87.5 %; Platelet Count 230 X 10*3/uL (140-440); RBC 4.44 X 10*6/uL (4.10-5.20); WBC 7.47 X 10*3/uL (4.50-10.00)
[2024-09-11 08:27] LABS: ALT 228 U/L (8-44); AST 98 U/L (13-35); Albumin 3.3 g/dL (3.8-4.9); Albumin/Globulin Ratio 1.22 Ratio (1.60-3.17); Alkaline Phosphatase 940 U/L (41-126); BUN/Creat Ratio 30.43 Ratio (12.00-20.00); Blood Urea Nitrogen 21.3 mg/dL (9.0-27.0); Carbon Dioxide 19.7 mmol/L (21.6-31.8); Chloride 108 mmol/L (96-109); Globulin 2.7 g/dL (1.6-3.3); Glucose 160 mg/dL (70-110); Sodium 140 mmol/L (135-145); Total Bilirubin 1.3 mg/dL (0.3-1.2)
[2024-09-11 11:59] LABS: Glucose,Whole Blood 94 mg/dL (70-110)
[2024-09-11] MEDS: amLODIPine 10 MG TAB PO SCH (12:10)
--- NOTE | 2024-09-11 12:46 | P.PN ---
Subjective Progress Note Date: 09/11/24 Principal diagnosis: Pancreatic mass This a pleasant 79-year-old female with a history of diabetes mellitus, hypertension, ascending aortic aneurysm, right upper extremity arterial stenting who had presented to the emergency department yesterday with complaints of increased weakness, fatigue, shortness of breath, abdominal discomfort and gas, decreased appetite, weight loss over 20 pounds since May and jaundice. Patient states she had recently seen her feed blender Dr. Jackson who watches over her ascending aortic aneurysm but believed her symptoms were not cardiac related and sent her back to her primary care physician Dr. Odom who had told her to come to the emergency department for further evaluation. She was noted to have elevated LFTs and elevated bilirubin on admission. She had a CAT scan of the abdomen pelvis with heterogeneous hypodense large pancreatic head mass measuring approximately 6.4 x 5.9 cm with ductal dilation, with suspected underlying neoplasm and also underlying acute pancreatitis. Patient denies any abdominal pain at this time. States yesterday she felt pretty good in the evening however she did not eat yesterday and states her abdominal bloating improved. She had some pancakes for breakfast this morning and states that after she felt full and some bloating and mild discomfort. No nausea or vomiting. States that she lost 6 pounds in the last week duration. Denies any previous history of pancreatitis or liver disease. Last colonoscopy was about 4 years ago in [place] and states it was normal. Admitting labs WBC 4.8 hemoglobin 15.4 hematocrit 44 platelet count 221,000 sodium 138 potassium 4.2 BUN 12 creatinine 0.5 glucose 154 total bilirubin 2.7 AST 353 ALT 361 alkaline phosphatase 1282 amylase 40 lipase 40 September 11, 2024 Patient seen and examined today as a follow-up. Apparently yesterday evening niurka tinajero started having pain with eating and was made NPO. Currently her daughters are at the bedside. She states she is feeling a little bit better today. She has no nausea or vomiting. No pain at this time. CA 19-9 2860 total bilirubin 1.3 AST 98 ALT 228 alkaline phosphatase 940 Patient has been accepted by [facility] for transfer however bed not available at this time. Unclear when bed will be available. She underwent her MRI of the pancreas yesterday reporting redemonstration of heterogeneous large pancreatic head mass with heterogeneous regions of enhancement. With encasement and narrowing of the common bile duct and pancreatic ducts resulting in intra and extrahepatic biliary duct dilation. Additionally encasement of the portal venous confluence and SMV resulting in h igh-grade stenosis. Encasement of the SMA with abutment of the GDA close proximity to surrounding structures as described above. Overall findings are highly concerning for malignant pancreatic neoplasm such as neuroendocrine tumor versus pancreatic neck in our cell carcinoma versus solid serous cystadenoma versus other Objective - Vital Signs Vital signs: Vital Signs Temp 97.5 F L 09/11/24 07:37 Pulse 58 L 09/11/24 07:37 Resp 16 09/11/24 07:37 BP 210/74 09/11/24 07:37 Pulse Ox 100 09/11/24 07:37 FiO2 Intake & Output 09/10/24 09/11/24 09/11/24 18:59 06:59 18:59 Intake Total 900 Balance 900 Weight 54.431 kg Intake: Intake, IV Titration 900 Amount Sodium Chloride 0.9% 1, 900 000 ml @ 75 mls/hr IV . [id number] [facility] Rx#:[id number] Other: Voiding Method Toilet # Voids 6 - Exam General appearance: The patient is alert, oriented, appears in no acute distress. HET: Head is normocephalic and atraumatic. Conjunctiva pink. Sclera anicteric. Neck: Supple without lymphadenopathy. Abdomen: Soft, thin, nontender, nondistended. Extremities: Normal skin color and turgor. No pedal edema Skin: No rashes, no jaundice Neurological: No focal deficits. Alert and oriented. - Labs CBC & Chem 7: 09/11/24 04:52 09/11/24 04:52 Labs: Abnormal Lab Results - Last 24 Hours (Table) 09/10/24 09/10/24 09/10/24 Range/Units 09:26 09:26 12:07 RDW (11.5-14.5) % MPV (9.5-12.2) FL Lymphocytes # (0.90-5.00) X 10*3/uL Eosinophils # (0.04-0.35) X 10*3/uL Sodium 135 L (137-145) mmol/L Carbon Dioxide 19 L (22-30) mmol/L Anion Gap (4.00-12.00) mmol/L BUN 18 H (7-17) mg/dL BUN/Creatinine Ratio (12.00-20.00) Ratio Glucose 310 H (74-99) mg/dL POC Glucose (mg/dL) 293 H (70-110) mg/dL Hemoglobin A1c (<=6.0) % Total Bilirubin 2.0 H (0.2-1.3) mg/dL AST 203 H (14-36) U/L ALT 291 H (4-34) U/L Alkaline Phosphatase 1167 H (38-126) U/L Total Protein (6.2-8.2) g/dL Albumin (3.8-4.9) g/dL Albumin/Globulin Ratio (1.60-3.17) Ratio CA 19-9 Antigen 2860.0 H (0.0-34.9) U/mL 09/10/24 09/10/24 09/11/24 Range/Units 17:31 20:26 01:52 RDW (11.5-14.5) % MPV (9.5-12.2) FL Lymphocytes # (0.90-5.00) X 10*3/uL Eosinophils # (0.04-0.35) X 10*3/uL Sodium (137-145) mmol/L Carbon Dioxide (22-30) mmol/L Anion Gap (4.00-12.00) mmol/L BUN (7-17) mg/dL BUN/Creatinine Ratio (12.00-20.00) Ratio Glucose (74-99) mg/dL POC Glucose (mg/dL) 133 H 222 H 153 H (70-110) mg/dL Hemoglobin A1c (<=6.0) % Total Bilirubin (0.2-1.3) mg/dL AST (14-36) U/L ALT (4-34) U/L Alkaline Phosphatase (38-126) U/L Total Protein (6.2-8.2) g/dL Albumin (3.8-4.9) g/dL Albumin/Globulin Ratio (1.60-3.17) Ratio CA 19-9 Antigen (0.0-34.9) U/mL 09/11/24 09/11/24 09/11/24 Range/Units 04:52 04:52 04:52 RDW 16.0 H (11.5-14.5) % MPV 12.3 H (9.5-12.2) FL Lymphocytes # 0.68 L (0.90-5.00) X 10*3/uL Eosinophils # 0 L (0.04-0.35) X 10*3/uL Sodium (137-145) mmol/L Carbon Dioxide 19.7 L (22-30) mmol/L Anion Gap 12.30 H (4.00-12.00) mmol/L BUN (7-17) mg/dL BUN/Creatinine Ratio 30.43 H (12.00-20.00) Ratio Glucose 160 H (74-99) mg/dL POC Glucose (mg/dL) (70-110) mg/dL Hemoglobin A1c 6.5 H (<=6.0) % Total Bilirubin 1.3 H (0.2-1.3) mg/dL AST 98 H (14-36) U/L ALT 228 H (4-34) U/L Alkaline Phosphatase 940 H (38-126) U/L Total Protein 6.0 L (6.2-8.2) g/dL Albumin 3.3 L (3.8-4.9) g/dL Albumin/Globulin Ratio 1.22 L (1.60-3.17) Ratio CA 19-9 Antigen (0.0-34.9) U/mL 09/11/24 09/11/24 Range/Units 06:06 07:12 RDW (11.5-14.5) % MPV (9.5-12.2) FL Lymphocytes # (0.90-5.00) X 10*3/uL Eosinophils # (0.04-0.35) X 10*3/uL Sodium (137-145) mmol/L Carbon Dioxide (22-30) mmol/L Anion Gap (4.00-12.00) mmol/L BUN (7-17) mg/dL BUN/Creatinine Ratio (12.00-20.00) Ratio Glucose (74-99) mg/dL POC Glucose (mg/dL) 130 H 117 H (70-110) mg/dL Hemoglobin A1c (<=6.0) % Total Bilirubin (0.2-1.3) mg/dL AST (14-36) U/L ALT (4-34) U/L Alkaline Phosphatase (38-126) U/L Total Protein (6.2-8.2) g/dL Albumin (3.8-4.9) g/dL Albumin/Globulin Ratio (1.60-3.17) Ratio CA 19-9 Antigen (0.0-34.9) U/mL Assessment and Plan (1) Transaminitis Narrative/Plan: 79-year-old female presenting for shortness of breath, fatigue and weakness along with greater than 20 pound weight loss in the last 4 months duration 6 pounds over the last 1 week duration with decreased appetite. Noted to have elevated total bilirubin AST ALT and alkaline phosphatase. Secondary to transaminitis CT abdomen pelvis was performed with pancreatic head mass 6.4 x 5.9 cm with biliary dilation noted concerning for neoplasm. CA 19-9 ordered, will trend LFTs. MRI/MRCP of pancreas pancreatic mass protocol ordered. Will need to consider oncology consultation. Patient will likely need referral to [facility] for ERCP with EUS. Current Visit: Yes Status: Acute Code(s): R74.01 - ELEVATION OF LEVELS OF LIVER TRANSAMINASE LEVELS SNOMED Code(s): 394195804 (2) Mass of head of pancreas Narrative/Plan: MRI confirms pancreatic mass, recommend transfer to tertiary center for ERCP and EUS for biopsy. Patient currently awaiting a bed at [facility]. Current Visit: Yes Status: Acute Code(s): K86.89 - OTHER SPECIFIED DISEASES OF PANCREAS SNOMED Code(s): 144675361 (3) Abnormal CT scan Current Visit: Yes Status: Acute Code(s): R93.89 - ABNORMAL FINDINGS ON DX IMAGING OF OTH BODY STRUCTURES SNOMED Code(s): 097914638 (4) Unintentional weight loss Current Visit: Yes Status: Acute Code(s): R63.4 - ABNORMAL WEIGHT LOSS SNOMED Code(s): 487487707 (5) Diabetes mellitus Current Visit: Yes Status: Acute Code(s): E11.9 - TYPE 2 DIABETES MELLITUS WITHOUT COMPLICATIONS SNOMED Code(s): 69592343 (6) Weakness Current Visit: Yes Status: Acute Code(s): R53.1 - WEAKNESS SNOMED Code(s): 05220339 (7) Decreased appetite Current Visit: Yes Status: Acute Code(s): R63.0 - ANOREXIA SNOMED Code(s): 94968100 Plan: 1. Continue symptomatic and supportive care 2. Diet as tolerated 3. Add Glucerna 4. MRI of the pancreas ordered and reviewed 5. Oncology on consultation, appreciate their recommendations 6. Patient will require ERCP with EUS, due to symptoms and size of mass recommend try to transfer to tertiary center for higher level of care. 7. Continue with pain management 8. Patient has been accepted by [facility] for transfer, awaiting a bed Thank you for this consultation, we will continue to follow. Dr. Irina Akbar I agree with the dictator's note, documented as a scribe by Jamee Souza.
--- NOTE | 2024-09-11 13:27 | P.PN ---
Subjective Progress Note Date: 09/11/24 SURGICAL PROGRESS NOTE CHIEF COMPLAINT: Pancreatic mass HISTORY OF PRESENT ILLNESS: Patient continues to complain of pain epigastric area. MRI pancreas reports large pancreatic head mass. Encases and narrows the common bile duct and pancreatic duct resulting in intra and extrahepatic biliary duct dilatation. 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 Patient is being transferred to [facility]. Awaiting bed. PHYSICAL EXAM: VITAL SIGNS: Reviewed. GENERAL: Well-developed in no acute distress. ABDOMEN: Soft. Nondistended. Epigastric tenderness NEUROLOGIC: Alert and oriented. Cranial nerves II through XII grossly intact. ASSESSMENT: 1. Epigastric and right sided abdominal pain 2. Pancreatic head mass PLAN: - Patient awaiting transfer to [facility] Physician Environment [employer] Landscape Designer note has been reviewed by physician. Signing provider agrees with the documented findings, assessment, and plan of care. Objective - Vital Signs Vital signs: Vital Signs Temp 97.5 F L 09/11/24 07:37 Pulse 58 L 09/11/24 07:37 Resp 16 09/11/24 07:37 BP 194/72 09/11/24 11:18 Pulse Ox 100 09/11/24 07:37 FiO2 Intake & Output 09/10/24 09/11/24 09/11/24 18:59 06:59 18:59 Intake Total 900 Balance 900 Weight 54.431 kg Intake: Intake, IV Titration 900 Amount Sodium Chloride 0.9% 1, 900 000 ml @ 75 mls/hr IV . [id number] [facility] Rx#:[id number] Other: Voiding Method Toilet Toilet # Voids 6 - Labs CBC & Chem 7: 09/11/24 04:52 09/11/24 04:52 Labs: Abnormal Lab Results - Last 24 Hours (Table) 09/10/24 09/10/24 09/10/24 Range/Units 09:26 17:31 20:26 RDW (11.5-14.5) % MPV (9.5-12.2) FL Lymphocytes # (0.90-5.00) X 10*3/uL Eosinophils # (0.04-0.35) X 10*3/uL Carbon Dioxide (21.6-31.8) mmol/L Anion Gap (4.00-12.00) mmol/L BUN/Creatinine Ratio (12.00-20.00) Ratio Glucose (70-110) mg/dL POC Glucose (mg/dL) 133 H 222 H (70-110) mg/dL Hemoglobin A1c (<=6.0) % Total Bilirubin (0.3-1.2) mg/dL AST (13-35) U/L ALT (8-44) U/L Alkaline Phosphatase (41-126) U/L Total Protein (6.2-8.2) g/dL Albumin (3.8-4.9) g/dL Albumin/Globulin Ratio (1.60-3.17) Ratio CA 19-9 Antigen 2860.0 H (0.0-34.9) U/mL 09/11/24 09/11/24 09/11/24 Range/Units 01:52 04:52 04:52 RDW 16.0 H (11.5-14.5) % MPV 12.3 H (9.5-12.2) FL Lymphocytes # 0.68 L (0.90-5.00) X 10*3/uL Eosinophils # 0 L (0.04-0.35) X 10*3/uL Carbon Dioxide (21.6-31.8) mmol/L Anion Gap (4.00-12.00) mmol/L BUN/Creatinine Ratio (12.00-20.00) Ratio Glucose (70-110) mg/dL POC Glucose (mg/dL) 153 H (70-110) mg/dL Hemoglobin A1c 6.5 H (<=6.0) % Total Bilirubin (0.3-1.2) mg/dL AST (13-35) U/L ALT (8-44) U/L Alkaline Phosphatase (41-126) U/L Total Protein (6.2-8.2) g/dL Albumin (3.8-4.9) g/dL Albumin/Globulin Ratio (1.60-3.17) Ratio CA 19-9 Antigen (0.0-34.9) U/mL 09/11/24 09/11/24 09/11/24 Range/Units 04:52 06:06 07:12 RDW (11.5-14.5) % MPV (9.5-12.2) FL Lymphocytes # (0.90-5.00) X 10*3/uL Eosinophils # (0.04-0.35) X 10*3/uL Carbon Dioxide 19.7 L (21.6-31.8) mmol/L Anion Gap 12.30 H (4.00-12.00) mmol/L BUN/Creatinine Ratio 30.43 H (12.00-20.00) Ratio Glucose 160 H (70-110) mg/dL POC Glucose (mg/dL) 130 H 117 H (70-110) mg/dL Hemoglobin A1c (<=6.0) % Total Bilirubin 1.3 H (0.3-1.2) mg/dL AST 98 H (13-35) U/L ALT 228 H (8-44) U/L Alkaline Phosphatase 940 H (41-126) U/L Total Protein 6.0 L (6.2-8.2) g/dL Albumin 3.3 L (3.8-4.9) g/dL Albumin/Globulin Ratio 1.22 L (1.60-3.17) Ratio CA 19-9 Antigen (0.0-34.9) U/mL
[2024-09-11] MEDS: KETOROLAC 15 MG/ML 1 ML VIAL IVP PRN (13:36)
[2024-09-11] MEDS: hydrALAZINE HCL 20 MG/ML 1 ML VIAL IVP PRN (13:37)
[2024-09-11] MEDS: ALPRAZolam 0.25 MG TAB PO PRN (13:37)
[2024-09-11] MEDS: HYDROmorphone 0.5 MG/0.5 ML SYRINGE IVP PRN (14:57)
--- NOTE | 2024-09-11 17:23 | P.PN ---
Subjective Progress Note Date: 09/11/24 History of present illness; Patient is 79-year-old female with hypertension, diabetes mellitus and ascending aortic aneurysm presenting with weakness and abdominal pain. She was seen by her PCP for her symptoms and jaundice who directed her to come to hospital for further evaluation. She is experiencing a generalized abdominal discomfort over the last 7 weeks. She characterizes pain as achy and generalized. She also has frequent belching. She denies any nausea, vomiting, diarrhea or constipation. Denies any hematochezia or melena. She also admits to occasional chills but denies any known fevers. She states on Monday she noticed her urine to be extremely dark and is concerned she is also dehydrated. Patient reports since May she has lost approximately 20 pounds, including 6 pounds in the last 2 weeks accompanied with extreme weakness and lethargy during this time. Patient admits to a history of cholecystectomy and appendectomy. No history of bowel resections. Patient states she had has a colonoscopy in the past. Patient denies any dizziness, lightheadedness, chest pain, shortness of breath or peripheral edema. REVIEW OF SYSTEMS: Pertinent positives and negatives noted in HPI. 09/11/24patient seen and examined at bedside with daughters present. Abdominal pain has improved. Discussed findings of MRCP. Continuing to await placement in [facility]. No other complaints. PHYSICAL EXAMINATION: Vitals reviewed, hypertensive GENERAL: Resting comfortably in bed. EYES: PERRL, no scleral injection, mild scleral icterus. No vision loss HENT: Normocephalic, atraumatic, hearing grossly intact, moist mucous membranes NECK: No tracheal deviation, full range of motion. CARDIOVASCULAR: S1 and S2 present. No murmurs, rubs, or gallops. PULMONARY: Chest is clear to auscultation, no wheezing, rhonchi, or crackles. ABDOMEN: Soft, mild generalized tenderness, nondistended. No palpable organomegaly. MUSCULOSKELETAL: No apparent joint swelling and deformities. EXTREMITIES: No apparent cyanosis, clubbing. No pedal edema. NEUROLOGICAL: Alert and oriented. Gross neurological examination with no apparent focal deficits. SKIN: No apparent rashes. Significant objective findings: LabsCBC is unremarkable, bicarb 19.7, BUN 21.3, creatinine 0.7, glucose 252516, HbA1c 6.5, total bilirubin 1.3 AST 98, ALT 228, ALP 940 MRCP finding significant for large pancreatic head mass heterogeneous regions of enhancement, encasement of the SMA with abutment of the GDA, close proximity to surrounding structures, highly concerning for malignancy Assessment and Plan: In summary, patient is 79-year-old female with hypertension, diabetes mellitus and ascending aortic aneurysm presenting with weakness and abdominal pain. 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 #Unintentional weight loss #Decreased appetite #Transaminitis CT abdomen pelvis with heterogeneous hypodense large pancreatic head Initial total bilirubin 2.7, AST 353, ALT 361, alkaline phosphatase 1282 MRCP as above Cancer antigen 19.9 is 2860 Surgery consulted Oncology consulted GI consulted, recommends ERCP with EUS and transfer to [facility] for higher level of care #Diabetes mellitus, type 2 Holding oral medications Begin Accu-Cheks and low-dose sliding scale, monitor for hypoglycemia HbA1c 6.5 Chronic Medical Conditions #Hypertension #AAA Resume home medications DVT ppx: Subq Lovenox 40 meq daily Code status: No code F: IV Normal saline 75 mL/hr E: Replete as needed N: Clear liquid diet advance to consistent carb as tolerated Anticipated discharge place: [facility], transfer for higher level of care Anticipated discharge time: When bed available Dictation was produced using [employer] dictation software. Please excuse any grammatical, word or spelling errors. Objective - Vital Signs Vital signs: Vital Signs Temp 97.5 F L 09/11/24 14:00 Pulse 70 09/11/24 14:00 Resp 20 09/11/24 14:00 BP 156/63 09/11/24 14:00 Pulse Ox 98 09/11/24 14:00 FiO2 Intake & Output 09/10/24 09/11/24 09/11/24 18:59 06:59 18:59 Intake Total 900 Balance 900 Weight 54.431 kg Intake: Intake, IV Titration 900 Amount Sodium Chloride 0.9% 1, 900 000 ml @ 75 mls/hr IV . [id number] [facility]ESS[facility] Rx#:[id number] Other: Voiding Method Toilet Toilet # Voids 6 - Labs CBC & Chem 7: 09/11/24 04:52 09/11/24 04:52 Labs: Abnormal Lab Results - Last 24 Hours (Table) 09/10/24 09/10/24 09/10/24 Range/Units 09:26 17:31 20:26 RDW (11.5-14.5) % MPV (9.5-12.2) FL Lymphocytes # (0.90-5.00) X 10*3/uL Eosinophils # (0.04-0.35) X 10*3/uL Carbon Dioxide (21.6-31.8) mmol/L Anion Gap (4.00-12.00) mmol/L BUN/Creatinine Ratio (12.00-20.00) Ratio Glucose (70-110) mg/dL POC Glucose (mg/dL) 133 H 222 H (70-110) mg/dL Hemoglobin A1c (<=6.0) % Total Bilirubin (0.3-1.2) mg/dL AST (13-35) U/L ALT (8-44) U/L Alkaline Phosphatase (41-126) U/L Total Protein (6.2-8.2) g/dL Albumin (3.8-4.9) g/dL Albumin/Globulin Ratio (1.60-3.17) Ratio CA 19-9 Antigen 2860.0 H (0.0-34.9) U/mL 09/11/24 09/11/24 09/11/24 Range/Units 01:52 04:52 04:52 RDW 16.0 H (11.5-14.5) % MPV 12.3 H (9.5-12.2) FL Lymphocytes # 0.68 L (0.90-5.00) X 10*3/uL Eosinophils # 0 L (0.04-0.35) X 10*3/uL Carbon Dioxide (21.6-31.8) mmol/L Anion Gap (4.00-12.00) mmol/L BUN/Creatinine Ratio (12.00-20.00) Ratio Glucose (70-110) mg/dL POC Glucose (mg/dL) 153 H (70-110) mg/dL Hemoglobin A1c 6.5 H (<=6.0) % Total Bilirubin (0.3-1.2) mg/dL AST (13-35) U/L ALT (8-44) U/L Alkaline Phosphatase (41-126) U/L Total Protein (6.2-8.2) g/dL Albumin (3.8-4.9) g/dL Albumin/Globulin Ratio (1.60-3.17) Ratio CA 19-9 Antigen (0.0-34.9) U/mL 09/11/24 09/11/24 09/11/24 Range/Units 04:52 06:06 07:12 RDW (11.5-14.5) % MPV (9.5-12.2) FL Lymphocytes # (0.90-5.00) X 10*3/uL Eosinophils # (0.04-0.35) X 10*3/uL Carbon Dioxide 19.7 L (21.6-31.8) mmol/L Anion Gap 12.30 H (4.00-12.00) mmol/L BUN/Creatinine Ratio 30.43 H (12.00-20.00) Ratio Glucose 160 H (70-110) mg/dL POC Glucose (mg/dL) 130 H 117 H (70-110) mg/dL Hemoglobin A1c (<=6.0) % Total Bilirubin 1.3 H (0.3-1.2) mg/dL AST 98 H (13-35) U/L ALT 228 H (8-44) U/L Alkaline Phosphatase 940 H (41-126) U/L Total Protein 6.0 L (6.2-8.2) g/dL Albumin 3.3 L (3.8-4.9) g/dL Albumin/Globulin Ratio 1.22 L (1.60-3.17) Ratio CA 19-9 Antigen (0.0-34.9) U/mL
[2024-09-11 17:24] LABS: Glucose,Whole Blood 238 mg/dL (70-110)
[2024-09-11 20:28] LABS: Glucose,Whole Blood 195 mg/dL (70-110)
--- NOTE | 2024-09-11 23:15 | P.CONS ---
History of Present Illness - Reason for Consult Consult date: 09/11/24 pancreatic mass Requesting physician: Ari Garcia - Chief Complaint abd pain, N,V - History of Present Illness Mrs. Zelaya is an 79-year-old female patient we been asked to see because of a new finding of a rather extensive pancreatic head mass. Patient has had prog ressive abdominal pain and weakness over the last few weeks. She reports weight loss of about 20 pounds since May, 6 pounds in the last 3 weeks. She has a poor appetite, abdominal discomfort, she also reports dark urine and pale stools. Denies fevers, night sweats, difficulty swallowing, no painful swallowing, chest pain, shortness of breath, nausea or vomiting, dysuria, hematuria, no other bleeding to report. She is a lifetime non-smoker, she has a history of stents. There is a family history of breast cancer and pancreatic cancer. Sharla we ordered laboratory workup showing an overall normal CBC, coags are normal, BUN 21, creatinine 0.7. Total bilirubin 1.3, elevated AST and ALT, 98/228. Alkaline phosphatase 940. CA 19 9 2860, lipase 40, amylase 40. CT AP with contrast reporting heterogenous hypodense large pancreatic head with suspected underlying neoplasm. Distal pancreatic duct dilation, moderate biliary dilation. 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 Encasement of the SMA with abutment of the GDA. Close proximity to all the surrounding stroke structures. Review of Systems 10 point review of systems is negative except as stated in HPI Past Medical History Past Medical History: Diabetes Mellitus, Hypertension Additional Past Medical History / Comment(s): aorticc aneursym History of Any Multi-Drug Resistant Organisms: None Reported Past Surgical History: Heart Catheterization, Hysterectomy Additional Past Surgical History / Comment(s): RIGHT ARM ARTERIAL STENTS Past Anesthesia/Blood Transfusion Reactions: No Reported Reaction Past Psychological History: No Psychological Hx Reported Smoking Status: Never smoker Past Alcohol Use History: None Reported Past Drug Use History: None Reported - Past Family History Mother Family Medical History: Coronary Artery Disease (CAD), Diabetes Mellitus Additional Family Medical History / Comment(s): cystic fibrosis Sister(s) Family Medical History: Diabetes Mellitus Father Family Medical History: Coronary Artery Disease (CAD), Diabetes Mellitus Additional Family Medical History / Comment(s): fathers sisters all had pancreatic CA Medications and Allergies Home Medications Medication Instructions Recorded Confirmed Type Aspirin EC [Ecotrin Low Dose] 81 mg PO DAILY 08/24/22 09/09/24 History Docusate [Colace] 100 mg PO Q2D PRN 08/24/22 09/09/24 History Empagliflozin [Jardiance] 25 mg PO DAILY 08/24/22 09/09/24 History Losartan Potassium [Cozaar] 100 mg PO DAILY 08/24/22 09/09/24 History Insulin Aspart (Niacinamide) See Protocol SQ AC-TID 09/09/24 09/09/24 History [Fiasp 100 Unit/ml Flextouch Pen] Insulin Degludec [Tresiba 7 units SQ DAILY 09/09/24 09/09/24 History Flextouch U-100 Pen] Nitroglycerin Sl Tabs [Nitrostat] 0.4 mg SL Q5M PRN 09/09/24 09/09/24 History carvediloL [Coreg] 3.125 mg PO BID 09/09/24 09/09/24 History Allergies Allergy/AdvReac Type Severity Reaction Status Date / Time Iodinated Contrast Media Allergy Anaphylaxis Verified 09/09/24 17:51 Sulfa (Sulfonamide Allergy Unknown Verified 09/09/24 17:51 Antibiotics) iv dye Allergy Anaphylaxis Uncoded 09/09/24 17:51 Physical Exam Vitals: Vital Signs Temp Pulse Resp BP Pulse Ox 09/11/24 07:37 97.5 F L 58 L 16 210/74 100 09/11/24 07:23 67 180/67 09/11/24 01:15 97.5 F L 70 16 168/69 97 09/10/24 19:08 97.8 F 67 15 163/75 98 09/10/24 12:15 97.9 F 73 16 169/71 96 Intake and Output 09/10/24 09/11/24 09/11/24 22:59 06:59 14:59 Intake Total 900 Balance 900 Intake: Intake, IV Titration 900 Amount Sodium Chloride 0.9% 1, 900 000 ml @ 75 mls/hr IV . [id number] [facility] Rx#:[id number] Other: Voiding Method Toilet Toilet # Voids 6 Weight 54.431 kg - Constitutional General appearance: average body habitus, cooperative, no acute distress - EENT Eyes: anicteric sclerae, EOMI ENT: hearing grossly normal, normal oropharynx - Neck Neck: no lymphadenopathy - Respiratory Respiratory: bilateral: CTA - Cardiovascular Rhythm: regular Heart sounds: normal: S1, S2 Abnormal Heart Sounds: no systolic murmur, no diastolic murmur, no rub, no S3 Gallop, no S4 Gallop, no click, no other leg Peripheral Edema: bilateral: None - Gastrointestinal General gastrointestinal: no absent bowel sounds, no decreased bowel sounds, no distended, no hepatomegaly, no hyperactive bowel sounds, normal bowel sounds, no organomegaly, no rigid, no scaphoid, soft, no splenomegaly, tenderness, no umbilical hernia, no ventral hernia - Integumentary Integumentary: normal - Neurologic Neurologic: CNII-XII intact - Musculoskeletal Musculoskeletal: strength equal bilaterally - Psychiatric Psychiatric: A&O x's 3, appropriate affect, intact judgment & insight Results CBC & Chem 7: 09/11/24 04:52 09/11/24 04:52 Labs: Abnormal Lab Results - Last 24 Hours (Table) 09/10/24 09/10/24 09/10/24 Range/Units 09:26 12:07 17:31 RDW (11.5-14.5) % MPV (9.5-12.2) FL Lymphocytes # (0.90-5.00) X 10*3/uL Eosinophils # (0.04-0.35) X 10*3/uL Carbon Dioxide (21.6-31.8) mmol/L Anion Gap (4.00-12.00) mmol/L BUN/Creatinine Ratio (12.00-20.00) Ratio Glucose (70-110) mg/dL POC Glucose (mg/dL) 293 H 133 H (70-110) mg/dL Hemoglobin A1c (<=6.0) % Total Bilirubin (0.3-1.2) mg/dL AST (13-35) U/L ALT (8-44) U/L Alkaline Phosphatase (41-126) U/L Total Protein (6.2-8.2) g/dL Albumin (3.8-4.9) g/dL Albumin/Globulin Ratio (1.60-3.17) Ratio CA 19-9 Antigen 2860.0 H (0.0-34.9) U/mL 09/10/24 09/11/24 09/11/24 Range/Units 20:26 01:52 04:52 RDW (11.5-14.5) % MPV (9.5-12.2) FL Lymphocytes # (0.90-5.00) X 10*3/uL Eosinophils # (0.04-0.35) X 10*3/uL Carbon Dioxide (21.6-31.8) mmol/L Anion Gap (4.00-12.00) mmol/L BUN/Creatinine Ratio (12.00-20.00) Ratio Glucose (70-110) mg/dL POC Glucose (mg/dL) 222 H 153 H (70-110) mg/dL Hemoglobin A1c 6.5 H (<=6.0) % Total Bilirubin (0.3-1.2) mg/dL AST (13-35) U/L ALT (8-44) U/L Alkaline Phosphatase (41-126) U/L Total Protein (6.2-8.2) g/dL Albumin (3.8-4.9) g/dL Albumin/Globulin Ratio (1.60-3.17) Ratio CA 19-9 Antigen (0.0-34.9) U/mL 09/11/24 09/11/24 09/11/24 Range/Units 04:52 04:52 06:06 RDW 16.0 H (11.5-14.5) % MPV 12.3 H (9.5-12.2) FL Lymphocytes # 0.68 L (0.90-5.00) X 10*3/uL Eosinophils # 0 L (0.04-0.35) X 10*3/uL Carbon Dioxide 19.7 L (21.6-31.8) mmol/L Anion Gap 12.30 H (4.00-12.00) mmol/L BUN/Creatinine Ratio 30.43 H (12.00-20.00) Ratio Glucose 160 H (70-110) mg/dL POC Glucose (mg/dL) 130 H (70-110) mg/dL Hemoglobin A1c (<=6.0) % Total Bilirubin 1.3 H (0.3-1.2) mg/dL AST 98 H (13-35) U/L ALT 228 H (8-44) U/L Alkaline Phosphatase 940 H (41-126) U/L Total Protein 6.0 L (6.2-8.2) g/dL Albumin 3.3 L (3.8-4.9) g/dL Albumin/Globulin Ratio 1.22 L (1.60-3.17) Ratio CA 19-9 Antigen (0.0-34.9) U/mL 09/11/24 Range/Units 07:12 RDW (11.5-14.5) % MPV (9.5-12.2) FL Lymphocytes # (0.90-5.00) X 10*3/uL Eosinophils # (0.04-0.35) X 10*3/uL Carbon Dioxide (21.6-31.8) mmol/L Anion Gap (4.00-12.00) mmol/L BUN/Creatinine Ratio (12.00-20.00) Ratio Glucose (70-110) mg/dL POC Glucose (mg/dL) 117 H (70-110) mg/dL Hemoglobin A1c (<=6.0) % Total Bilirubin (0.3-1.2) mg/dL AST (13-35) U/L ALT (8-44) U/L Alkaline Phosphatase (41-126) U/L Total Protein (6.2-8.2) g/dL Albumin (3.8-4.9) g/dL Albumin/Globulin Ratio (1.60-3.17) Ratio CA 19-9 Antigen (0.0-34.9) U/mL CT scan - abdomen: report reviewed CT scan - pelvis: report reviewed MRI - abdomen: report reviewed Assessment and Plan (1) Mass of head of pancreas Current Visit: Yes Status: Acute Priority: High Code(s): K86.89 - OTHER SPECIFIED DISEASES OF PANCREAS SNOMED Code(s): 823129236 (2) Transaminitis Current Visit: Yes Status: Acute Code(s): R74.01 - ELEVATION OF LEVELS OF LIVER TRANSAMINASE LEVELS SNOMED Code(s): 725677545 (3) Unintentional weight loss Current Visit: Yes Status: Acute Code(s): R63.4 - ABNORMAL WEIGHT LOSS SNOMED Code(s): 212059266 Plan: Mass of the head of the pancreas - Presentation and imaging as reported in HPI. - Elevated CA 19-9 - It was discussed with the patient and her family at the bedside the concerns for malignant process. It was reviewed the procedures that are typically done to obtain a biopsy specimen for pathological evaluation. Also, it was reviewed with patient and her family that pancreatic malignancies that have no gross metastatic disease suspected or seen, surgical evaluation and recommendations iare always obtained prior to considering any treatments. All of these procedures and the surgical evaluation can be performed at a tertiary facility. Agree with plan for transfer. - Patient and family inquired about treatment locally and they were told that that can be done Transaminitis, abdominal pain, unintentional weight loss -Findings concerning for malignancy. Likely secondary to above findings. Doctor attests: I performed a history and physical examination of this patient, developed impression and plan of care. Discussed with dictator. I agree with dictators note, documented as a scribe.
[2024-09-12 01:19] LABS: Glucose,Whole Blood 166 mg/dL (70-110)
[2024-09-12 06:59] LABS: Glucose,Whole Blood 134 mg/dL (70-110)
--- NOTE | 2024-09-12 11:34 | P.PN ---
Subjective Progress Note Date: 09/12/24 SURGICAL PROGRESS NOTE CHIEF COMPLAINT: Pancreatic mass HISTORY OF PRESENT ILLNESS: No new complaints. Patient continues to complain of pain epigastric area. MRI pancreas reports large pancreatic head mass. Encases and narrows the common bile duct and pancreatic duct resulting in intra and extrahepatic biliary duct dilatation. 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 Patient is being transferred to [facility]. Awaiting bed. PHYSICAL EXAM: VITAL SIGNS: Reviewed. GENERAL: Well-developed in no acute distress. ABDOMEN: Soft. Nondistended. Epigastric tenderness NEUROLOGIC: Alert and oriented. Cranial nerves II through XII grossly intact. ASSESSMENT: 1. Epigastric and right sided abdominal pain 2. Pancreatic head mass PLAN: - Patient awaiting transfer to [facility] Physician Internet Specialist note has been reviewed by physician. Signing provider agrees with the documented findings, assessment, and plan of care. Objective - Vital Signs Vital signs: Vital Signs Temp 97.8 F 09/12/24 06:55 Pulse 85 09/12/24 06:55 Resp 18 09/12/24 06:55 BP 179/63 09/12/24 06:55 Pulse Ox 100 09/12/24 06:55 FiO2 Intake & Output 09/11/24 09/12/24 09/12/24 18:59 06:59 18:59 Intake Total 450 Balance 450 Intake: Intake, IV Titration 450 Amount Sodium Chloride 0.9% 1, 450 000 ml @ 75 mls/hr IV . [id number] [facility] Rx#:[id number] Other: Voiding Method Toilet Toilet # Voids 3 - Labs CBC & Chem 7: 09/11/24 04:52 09/11/24 04:52 Labs: Abnormal Lab Results - Last 24 Hours (Table) 09/11/24 09/11/24 09/12/24 Range/Units 17:22 20:26 01:18 POC Glucose (mg/dL) 238 H 195 H 166 H (70-110) mg/dL 09/12/24 Range/Units 06:57 POC Glucose (mg/dL) 134 H (70-110) mg/dL
[2024-09-12 11:52] LABS: ALT 185 U/L (4-34); AST 97 U/L (14-36); African American GFR (CKD) 79 (>60 ml/min/1.73 sqM); Albumin 3.3 g/dL (3.5-5.0); Albumin/Globulin Ratio 1.1; Alkaline Phosphatase 849 U/L (38-126); Anion Gap 5 mmol/L; Blood Urea Nitrogen 21 mg/dL (7-17); Calcium 9.2 mg/dL (8.4-10.2); Carbon Dioxide 28 mmol/L (22-30); Chloride 104 mmol/L (98-107); Globulin 2.9 g/dL; Glucose 260 mg/dL (74-99); Non-African American GFR(CKD) 69 (>60 ml/min/1.73 sqM); Potassium 3.9 mmol/L (3.5-5.1); Sodium 137 mmol/L (137-145); Total Bilirubin 1.9 mg/dL (0.2-1.3); Total Protein 6.2 g/dL (6.3-8.2)
[2024-09-12 12:07] LABS: Glucose,Whole Blood 197 mg/dL (70-110)
[2024-09-12] MEDS: polyethylene glycoL 3350 17 GM POWD.PACK PO SCH (12:50)
--- NOTE | 2024-09-12 15:27 | P.PN ---
Subjective Progress Note Date: 09/12/24 History of present illness; Patient is 79-year-old female with hypertension, diabetes mellitus and ascending aortic aneurysm presenting with weakness and abdominal pain. She was seen by her PCP for her symptoms and jaundice who directed her to come to hospital for further evaluation. She is experiencing a generalized abdominal discomfort over the last 7 weeks. She characterizes pain as achy and generalized. She also has frequent belching. She denies any nausea, vomiting, diarrhea or constipation. Denies any hematochezia or melena. She also admits to occasional chills but denies any known fevers. She states on Monday she noticed her urine to be extremely dark and is concerned she is also dehydrated. Patient reports since May she has lost approximately 20 pounds, including 6 pounds in the last 2 weeks accompanied with extreme weakness and lethargy during this time. Patient admits to a history of cholecystectomy and appendectomy. No history of bowel resections. Patient states she had has a colonoscopy in the past. Patient denies any dizziness, lightheadedness, chest pain, shortness of breath or peripheral edema. REVIEW OF SYSTEMS: Pertinent positives and negatives noted in HPI. 09/11/24patient seen and examined at bedside with daughters present. Abdominal pain has improved. Discussed findings of MRCP. Continuing to await placement in [facility]. MRCP finding significant for large pancreatic head mass heterogeneous regions of enhancement, encasement of the SMA with abutment of the GDA, close proximity to surrounding structures, highly concerning for delores ashby. No other complaints. 09/12/24 - Patient seen and examined at bedside with daughters present. Patient awaiting transfer to [facility]. Pain improved. Patient seems to be having more success tolerating food at this point. Will continue to advance diet. Answered questions regarding her plan. PHYSICAL EXAMINATION: Vitals reviewed, hypertensive GENERAL: Resting comfortably in bed. EYES: PERRL, no scleral injection, mild scleral icterus. No vision loss CARDIOVASCULAR: S1 and S2 present. No murmurs, rubs, or gallops. PULMONARY: Chest is clear to auscultation, no wheezing, rhonchi, or crackles. ABDOMEN: Soft, no tenderness, nondistended. No palpable organomegaly. EXTREMITIES: No apparent cyanosis, clubbing. No pedal edema. NEUROLOGICAL: Alert and oriented. Gross neurological examination with no apparent focal deficits. Significant objective findings: LabsBUN 21, glucose ranging 134- 260, total bilirubin 1.9, AST 97, ALT 185, ALP 849 No new imaging Assessment and Plan: In summary, patient is 79-year-old female with hypertension, diabetes mellitus and ascending aortic aneurysm presenting with weakness and abdominal pain. 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 #Unintentional weight loss #Decreased appetite #Transaminitis CT abdomen pelvis with heterogeneous hypodense large pancreatic head Initial total bilirubin 2.7, AST 353, ALT 361, alkaline phosphatase 1282 MRCP with findings of large pancreatic head mass, concerning for malignancy Cancer antigen 19.9 is 2860 Surgery following, note reviewed Oncology following, note reviewed GI following, recommends ERCP with EUS and transfer to [facility] for higher level of care #Diabetes mellitus, type 2 Holding oral medications Begin Accu-Cheks and low-dose sliding scale, monitor for hypoglycemia HbA1c 6.5 Chronic Medical Conditions #Hypertension #AAA Resume home medications DVT ppx: Subq Lovenox 40 meq daily Code status: No code F: P.o. E: Replete as needed N: Clear liquid diet advance to consistent carb as tolerated Anticipated discharge place: [facility], transfer for higher level of care Anticipated discharge time: When bed available Dictation was produced using [employer] dictation software. Please excuse any grammatical, word or spelling errors. Objective - Vital Signs Vital signs: Vital Signs Temp 97.8 F 09/12/24 06:55 Pulse 85 09/12/24 06:55 Resp 18 09/12/24 06:55 BP 179/63 09/12/24 06:55 Pulse Ox 100 09/12/24 06:55 FiO2 Intake & Output 09/11/24 09/12/24 09/12/24 18:59 06:59 18:59 Intake Total 450 Balance 450 Intake: Intake, IV Titration 450 Amount Sodium Chloride 0.9% 1, 450 000 ml @ 75 mls/hr IV . [id number] [facility] Rx#:[id number] Other: Voiding Method Toilet Toilet # Voids 3 - Labs CBC & Chem 7: 09/11/24 04:52 09/12/24 10:53 Labs: Abnormal Lab Results - Last 24 Hours (Table) 09/11/24 09/11/24 09/12/24 Range/Units 17:22 20:26 01:18 POC Glucose (mg/dL) 238 H 195 H 166 H (70-110) mg/dL 09/12/24 Range/Units 06:57 POC Glucose (mg/dL) 134 H (70-110) mg/dL
--- NOTE | 2024-09-12 16:04 | P.PN ---
Subjective Progress Note Date: 09/12/24 Principal diagnosis: Pancreatic mass This a pleasant 79-year-old female with a history of diabetes mellitus, hypertension, ascending aortic aneurysm, right upper extremity arterial stenting who had presented to the emergency department yesterday with complaints of increased weakness, fatigue, shortness of breath, abdominal discomfort and gas, decreased appetite, weight loss over 20 pounds since May and jaundice. Patient states she had recently seen her machine hose cutter Dr. Jackson who watches over her ascending aortic aneurysm but believed her symptoms were not cardiac related and sent her back to her primary care physician Dr. Odom who had told her to come to the emergency department for further evaluation. She was noted to have elevated LFTs and elevated bilirubin on admission. She had a CAT scan of the abdomen pelvis with heterogeneous hypodense large pancreatic head mass measuring approximately 6.4 x 5.9 cm with ductal dilation, with suspected underlying neoplasm and also underlying acute pancreatitis. Patient denies any abdominal pain at this time. States yesterday she felt pretty good in the evening however she did not eat yesterday and states her abdominal bloating improved. She had some pancakes for breakfast this morning and states that after she felt full and some bloating and mild discomfort. No nausea or vomiting. States that she lost 6 pounds in the last week duration. Denies any previous history of pancreatitis or liver disease. Last colonoscopy was about 4 years ago in [place] and states it was normal. Admitting labs WBC 4.8 hemoglobin 15.4 hematocrit 44 platelet count 221,000 sodium 138 potassium 4.2 BUN 12 creatinine 0.5 glucose 154 total bilirubin 2.7 AST 353 ALT 361 alkaline phosphatase 1282 amylase 40 lipase 40 September 11, 2024 Patient seen and examined today as a follow-up. Apparently yesterday evening niurka tinajero started having pain with eating and was made NPO. Currently her daughters are at the bedside. She states she is feeling a little bit better today. She has no nausea or vomiting. No pain at this time. CA 19-9 2860 total bilirubin 1.3 AST 98 ALT 228 alkaline phosphatase 940 Patient has been accepted by [facility] for transfer however bed not available at this time. Unclear when bed will be available. She underwent her MRI of the pancreas yesterday reporting redemonstration of heterogeneous large pancreatic head mass with heterogeneous regions of enhancement. With encasement and narrowing of the common bile duct and pancreatic ducts resulting in intra and extrahepatic biliary duct dilation. Additionally encasement of the portal venous confluence and SMV resulting in h igh-grade stenosis. Encasement of the SMA with abutment of the GDA close proximity to surrounding structures as described above. Overall findings are highly concerning for malignant pancreatic neoplasm such as neuroendocrine tumor versus pancreatic neck in our cell carcinoma versus solid serous cystadenoma versus other 05/14/2025 Patient seen and examined today as a follow-up. Yesterday we try to advance her to a regular diet however after eating just a couple of bites she had abdominal pain which she reported as almost a dull ache. She was transition back to clear liquid diet. This morning she was able to tolerate clear liquids without any abdominal pain. She is awaiting a bed at [facility] for further evaluation with ERCP and EUS for biopsy. Total bilirubin 1.9 AST 97 ALT 185 alkaline phosphatase 849. Oncology is following along with recommendation for biopsy and outpatient follow-up. Objective - Vital Signs Vital signs: Vital Signs Temp 97.8 F 09/12/24 06:55 Pulse 85 09/12/24 06:55 Resp 18 09/12/24 06:55 BP 179/63 09/12/24 06:55 Pulse Ox 100 09/12/24 06:55 FiO2 Intake & Output 09/11/24 09/12/24 09/12/24 18:59 06:59 18:59 Intake Total 450 Balance 450 Intake: Intake, IV Titration 450 Amount Sodium Chloride 0.9% 1, 450 000 ml @ 75 mls/hr IV . [id number] [facility] Rx#:[id number] Other: Voiding Method Toilet Toilet # Voids 3 - Exam General appearance: The patient is alert, oriented, appears in no acute distress. HET: Head is normocephalic and atraumatic. Conjunctiva pink. Sclera anicteric. Neck: Supple without lymphadenopathy. Abdomen: Soft, thin, nontender, nondistended. Extremities: Normal skin color and turgor. No pedal edema Skin: No rashes, no jaundice Neurological: No focal deficits. Alert and oriented. - Labs CBC & Chem 7: 09/11/24 04:52 09/12/24 10:53 Labs: Abnormal Lab Results - Last 24 Hours (Table) 09/11/24 09/11/24 09/12/24 Range/Units 17:22 20:26 01:18 POC Glucose (mg/dL) 238 H 195 H 166 H (70-110) mg/dL 09/12/24 Range/Units 06:57 POC Glucose (mg/dL) 134 H (70-110) mg/dL Assessment and Plan (1) Transaminitis Narrative/Plan: 79-year-old female presenting for shortness of breath, fatigue and weakness along with greater than 20 pound weight loss in the last 4 months duration 6 pounds over the last 1 week duration with decreased appetite. Noted to have elevated total bilirubin AST ALT and alkaline phosphatase. Secondary to transaminitis CT abdomen pelvis was performed with pancreatic head mass 6.4 x 5.9 cm with biliary dilation noted concerning for neoplasm. CA 19-9 ordered, will trend LFTs. MRI/MRCP of pancreas pancreatic mass protocol ordered. Will need to consider oncology consultation. Patient will likely need referral to [facility] for ERCP with EUS. Current Visit: Yes Status: Acute Code(s): R74.01 - ELEVATION OF LEVELS OF LIVER TRANSAMINASE LEVELS SNOMED Code(s): 053005616 (2) Mass of head of pancreas Narrative/Plan: MRI confirms pancreatic mass, recommend transfer to tertiary center for ERCP and EUS for biopsy. Patient currently awaiting a bed at [facility]. Current Visit: Yes Status: Acute Priority: High Code(s): K86.89 - OTHER SPECIFIED DISEASES OF PANCREAS SNOMED Code(s): 211025267 (3) Abnormal CT scan Current Visit: Yes Status: Acute Code(s): R93.89 - ABNORMAL FINDINGS ON DX IMAGING OF OTH BODY STRUCTURES SNOMED Code(s): 331307261 (4) Unintentional weight loss Current Visit: Yes Status: Acute Code(s): R63.4 - ABNORMAL WEIGHT LOSS SNOMED Code(s): 728040107 (5) Diabetes mellitus Current Visit: Yes Status: Acute Code(s): E11.9 - TYPE 2 DIABETES MELLITUS WITHOUT COMPLICATIONS SNOMED Code(s): 61760112 (6) Weakness Current Visit: Yes Status: Acute Code(s): R53.1 - WEAKNESS SNOMED Code(s): 97741610 (7) Decreased appetite Current Visit: Yes Status: Acute Code(s): R63.0 - ANOREXIA SNOMED Code(s): 72868781 Plan: 1. Continue symptomatic and supportive care 2. Diet as tolerated 3. Add Glucerna 4. MRI of the pancreas ordered and reviewed 5. Oncology on consultation, appreciate their recommendations 6. Patient will require ERCP with EUS, due to symptoms and size of mass recommend try to transfer to tertiary center for higher level of care. 7. Continue with pain management 8. Patient has been accepted by [facility] for transfer, awaiting a bed. Patient discussed with Dr. Hodges from [facility], patient to be transferred when a bed available. Thank you for this consultation, we will continue to follow. Dr. Irina Akbar I agree with the dictator's note, documented as a scribe by Jamee Souza.
[2024-09-12] MEDS: HYDROcodone/APAP 5-325MG 1 EACH TAB PO PRN (16:09)
[2024-09-12 16:36] LABS: Glucose,Whole Blood 169 mg/dL (70-110)
[2024-09-12 20:07] LABS: Glucose,Whole Blood 138 mg/dL (70-110)
[2024-09-12] MEDS: SENNOSIDES-DOCUSATE SODIUM 1 EACH TAB PO SCH (20:11)
[2024-09-13 00:45] LABS: Glucose,Whole Blood 93 mg/dL (70-110)
[2024-09-13 07:01] LABS: Glucose,Whole Blood 89 mg/dL (70-110)
[2024-09-13 08:19] LABS: ALT 199 U/L (8-44); AST 124 U/L (13-35); Albumin 3.4 g/dL (3.8-4.9); Albumin/Globulin Ratio 1.31 Ratio (1.60-3.17); Alkaline Phosphatase 838 U/L (41-126); BUN/Creat Ratio 20.14 Ratio (12.00-20.00); Blood Urea Nitrogen 14.1 mg/dL (9.0-27.0); Carbon Dioxide 26.7 mmol/L (21.6-31.8); Chloride 106 mmol/L (96-109); Globulin 2.6 g/dL (1.6-3.3); Glucose 119 mg/dL (70-110); Potassium 3.5 mmol/L (3.5-5.5); Sodium 142 mmol/L (135-145); Total Bilirubin 1.5 mg/dL (0.3-1.2)
--- NOTE | 2024-09-13 11:46 | P.PN ---
Subjective Progress Note Date: 09/13/24 Principal diagnosis: Pancreatic mass This a pleasant 79-year-old female with a history of diabetes mellitus, hypertension, ascending aortic aneurysm, right upper extremity arterial stenting who had presented to the emergency department yesterday with complaints of increased weakness, fatigue, shortness of breath, abdominal discomfort and gas, decreased appetite, weight loss over 20 pounds since May and jaundice. Patient states she had recently seen her associate doctor Dr. Jackson who watches over her ascending aortic aneurysm but believed her symptoms were not cardiac related and sent her back to her primary care physician Dr. Odom who had told her to come to the emergency department for further evaluation. She was noted to have elevated LFTs and elevated bilirubin on admission. She had a CAT scan of the abdomen pelvis with heterogeneous hypodense large pancreatic head mass measuring approximately 6.4 x 5.9 cm with ductal dilation, with suspected underlying neoplasm and also underlying acute pancreatitis. Patient denies any abdominal pain at this time. States yesterday she felt pretty good in the evening however she did not eat yesterday and states her abdominal bloating improved. She had some pancakes for breakfast this morning and states that after she felt full and some bloating and mild discomfort. No nausea or vomiting. States that she lost 6 pounds in the last week duration. Denies any previous history of pancreatitis or liver disease. Last colonoscopy was about 4 years ago in [place] and states it was normal. Admitting labs WBC 4.8 hemoglobin 15.4 hematocrit 44 platelet count 221,000 sodium 138 potassium 4.2 BUN 12 creatinine 0.5 glucose 154 total bilirubin 2.7 AST 353 ALT 361 alkaline phosphatase 1282 amylase 40 lipase 40 September 11, 2024 Patient seen and examined today as a follow-up. Apparently yesterday evening niurka tinajero started having pain with eating and was made NPO. Currently her daughters are at the bedside. She states she is feeling a little bit better today. She has no nausea or vomiting. No pain at this time. CA 19-9 2860 total bilirubin 1.3 AST 98 ALT 228 alkaline phosphatase 940 Patient has been accepted by [facility] for transfer however bed not available at this time. Unclear when bed will be available. She underwent her MRI of the pancreas yesterday reporting redemonstration of heterogeneous large pancreatic head mass with heterogeneous regions of enhancement. With encasement and narrowing of the common bile duct and pancreatic ducts resulting in intra and extrahepatic biliary duct dilation. Additionally encasement of the portal venous confluence and SMV resulting in h igh-grade stenosis. Encasement of the SMA with abutment of the GDA close proximity to surrounding structures as described above. Overall findings are highly concerning for malignant pancreatic neoplasm such as neuroendocrine tumor versus pancreatic neck in our cell carcinoma versus solid serous cystadenoma versus other 05/14/2025 Patient seen and examined today as a follow-up. Yesterday we try to advance her to a regular diet however after eating just a couple of bites she had abdominal pain which she reported as almost a dull ache. She was transition back to clear liquid diet. This morning she was able to tolerate clear liquids without any abdominal pain. She is awaiting a bed at [facility] for further evaluation with ERCP and EUS for biopsy. Total bilirubin 1.9 AST 97 ALT 185 alkaline phosphatase 849. Oncology is following along with recommendation for biopsy and outpatient follow-up. 05/15/2025 Patient seen and examined today as a follow-up. Patient reports she is getting more of a constant pain in her back and left side of her abdomen. Patient was discussed with Dr. Hodges and patient has been accepted unfortunately [facility] has over surge of patients and multiple patients are waiting for beds and soonest availability would be possibly on Monday. This was discussed with the patient that patient could be discharged home and then have an appointment set up as an outpatient for ERCP EUS. However patient states she is not comfortable with that and she would like to stay secondary to pain and poor dietary intake. Total bilirubin 1.5 AST 124 ALT 199 alkaline phosphatase 838. Patient had been on clear liquid diet and tolerating it well. No vomiting. Objective - Vital Signs Vital signs: Vital Signs Temp 98 F 09/13/24 01:09 Pulse 62 09/13/24 01:09 Resp 16 09/13/24 01:09 BP 128/64 09/13/24 01:09 Pulse Ox 97 09/13/24 01:09 FiO2 Intake & Output 09/12/24 09/12/24 09/13/24 06:59 18:59 06:59 Intake Total 1320 Balance 1320 Intake: Oral 1320 Other: Voiding Method Toilet Toilet Toilet # Voids 3 5 3 # Bowel Movements 1 - Exam General appearance: The patient is alert, oriented, appears in no acute distress. HET: Head is normocephalic and atraumatic. Conjunctiva pink. Sclera anicteric. Neck: Supple without lymphadenopathy. Abdomen: Soft, thin, left upper quadrant tenderness nondistended. Extremities: Normal skin color and turgor. No pedal edema Skin: No rashes, no jaundice Neurological: No focal deficits. Alert and oriented. - Labs CBC & Chem 7: 09/11/24 04:52 09/13/24 04:22 Labs: Abnormal Lab Results - Last 24 Hours (Table) 09/12/24 09/12/24 09/12/24 Range/Units 06:57 10:53 12:05 BUN 21 H (7-17) mg/dL Glucose 260 H (74-99) mg/dL POC Glucose (mg/dL) 134 H 197 H (70-110) mg/dL Total Bilirubin 1.9 H (0.2-1.3) mg/dL AST 97 H (14-36) U/L ALT 185 H (4-34) U/L Alkaline Phosphatase 849 H (38-126) U/L Total Protein 6.2 L (6.3-8.2) g/dL Albumin 3.3 L (3.5-5.0) g/dL 09/12/24 09/12/24 Range/Units 16:34 20:06 BUN (7-17) mg/dL Glucose (74-99) mg/dL POC Glucose (mg/dL) 169 H 138 H (70-110) mg/dL Total Bilirubin (0.2-1.3) mg/dL AST (14-36) U/L ALT (4-34) U/L Alkaline Phosphatase (38-126) U/L Total Protein (6.3-8.2) g/dL Albumin (3.5-5.0) g/dL Assessment and Plan (1) Transaminitis Narrative/Plan: 79-year-old female presenting for shortness of breath, fatigue and weakness along with greater than 20 pound weight loss in the last 4 months duration 6 pounds over the last 1 week duration with decreased appetite. Noted to have elevated total bilirubin AST ALT and alkaline phosphatase. Secondary to transaminitis CT abdomen pelvis was performed with pancreatic head mass 6.4 x 5.9 cm with biliary dilation noted concerning for neoplasm. CA 19-9 ordered, will trend LFTs. MRI/MRCP of pancreas pancreatic mass protocol ordered. Will need to consider oncology consultation. Patient will likely need referral to [facility] for ERCP with EUS. Current Visit: Yes Status: Acute Code(s): R74.01 - ELEVATION OF LEVELS OF LIVER TRANSAMINASE LEVELS SNOMED Code(s): 973888535 (2) Mass of head of pancreas Narrative/Plan: MRI confirms pancreatic mass, recommend transfer to tertiary center for ERCP and EUS for biopsy. Patient currently awaiting a bed at [facility]. Current Visit: Yes Status: Acute Priority: High Code(s): K86.89 - OTHER SPECIFIED DISEASES OF PANCREAS SNOMED Code(s): 780870605 (3) Abnormal CT scan Current Visit: Yes Status: Acute Code(s): R93.89 - ABNORMAL FINDINGS ON DX IMAGING OF OTH BODY STRUCTURES SNOMED Code(s): 154671898 (4) Unintentional weight loss Current Visit: Yes Status: Acute Code(s): R63.4 - ABNORMAL WEIGHT LOSS S NOMED Code(s): 266285725 (5) Diabetes mellitus Current Visit: Yes Status: Acute Code(s): E11.9 - TYPE 2 DIABETES MELLITUS WITHOUT COMPLICATIONS SNOMED Code(s): 69621406 (6) Weakness Current Visit: Yes Status: Acute Code(s): R53.1 - WEAKNESS SNOMED Code(s): 94104799 (7) Decreased appetite Current Visit: Yes Status: Acute Code(s): R63.0 - ANOREXIA SNOMED Code(s): 32476479 Plan: 1. Continue symptomatic and supportive care 2. Diet as tolerated 3. Add Glucerna 4. MRI of the pancreas ordered and reviewed 5. Oncology on consultation, appreciate their recommendations 6. Patient will require ERCP with EUS, due to symptoms and size of mass recommend try to transfer to tertiary center for higher level of care. 7. Continue with pain management 8. Patient has been accepted by [facility] for transfer, awaiting a bed. Patient discussed with Dr. Hodges from [facility], patient to be transferred when a bed available, likely earliest would be on Monday. Patient given the option to be discharged home with outpatient follow-up with [facility] for ERCP EUS. Patient declining discharge secondary to pain and decreased oral intake. Await for available bed. Thank you for this consultation, there is no further gastroenterology coverage. We will sign off at this time. Dr. Irina Akbar I agree with the dictator's note, documented as a scribe by Jamee Souza.
--- NOTE | 2024-09-13 12:11 | P.PN ---
Subjective Progress Note Date: 09/13/24 SURGICAL PROGRESS NOTE CHIEF COMPLAINT: Pancreatic mass HISTORY OF PRESENT ILLNESS: No new complaints. Patient complains of pain in her back. She is requesting increase in diet. She still awaiting for bed availability at [facility]. PHYSICAL EXAM: VITAL SIGNS: Reviewed. GENERAL: Well-developed in no acute distress. ABDOMEN: Soft. Nondistended. Epigastric tenderness NEUROLOGIC: Alert and oriented. Cranial nerves II through XII grossly intact. ASSESSMENT: 1. Epigastric and right sided abdominal pain 2. Pancreatic head mass PLAN: - Patient awaiting transfer to [facility] - Discussed case with GI service. Advance diet to low-fat [employer] note has been reviewed by physician. Signing provider agrees with the documented findings, assessment, and plan of care. Objective - Vital Signs Vital signs: Vital Signs Temp 98.0 F 09/13/24 07:00 Pulse 66 09/13/24 07:00 Resp 18 09/13/24 07:00 BP 176/73 09/13/24 07:00 Pulse Ox 98 09/13/24 07:00 FiO2 Intake & Output 09/12/24 09/13/24 09/13/24 18:59 06:59 18:59 Intake Total 1320 Balance 1320 Intake: Oral 1320 Other: Voiding Method Toilet Toilet # Voids 5 3 # Bowel Movements 1 - Labs CBC & Chem 7: 09/11/24 04:52 09/13/24 04:22 Labs: Abnormal Lab Results - Last 24 Hours (Table) 09/12/24 09/12/24 09/13/24 Range/Units 16:34 20:06 04:22 BUN/Creatinine Ratio 20.14 H (12.00-20.00) Ratio Glucose 119 H (70-110) mg/dL POC Glucose (mg/dL) 169 H 138 H (70-110) mg/dL Total Bilirubin 1.5 H (0.3-1.2) mg/dL AST 124 H (13-35) U/L ALT 199 H (8-44) U/L Alkaline Phosphatase 838 H (41-126) U/L Total Protein 6.0 L (6.2-8.2) g/dL Albumin 3.4 L (3.8-4.9) g/dL Albumin/Globulin Ratio 1.31 L (1.60-3.17) Ratio
[2024-09-13 12:20] LABS: Glucose,Whole Blood 210 mg/dL (70-110)
--- NOTE | 2024-09-13 14:57 | P.PN ---
Subjective Progress Note Date: 09/13/24 History of present illness; Patient is 79-year-old female with hypertension, diabetes mellitus and ascending aortic aneurysm presenting with weakness and abdominal pain. She was seen by her PCP for her symptoms and jaundice who directed her to come to hospital for further evaluation. She is experiencing a generalized abdominal discomfort over the last 7 weeks. She characterizes pain as achy and generalized. She also has frequent belching. She denies any nausea, vomiting, diarrhea or constipation. Denies any hematochezia or melena. She also admits to occasional chills but denies any known fevers. She states on Monday she noticed her urine to be extremely dark and is concerned she is also dehydrated. Patient reports since May she has lost approximately 20 pounds, including 6 pounds in the last 2 weeks accompanied with extreme weakness and lethargy during this time. Patient admits to a history of cholecystectomy and appendectomy. No history of bowel resections. Patient states she had has a colonoscopy in the past. Patient denies any dizziness, lightheadedness, chest pain, shortness of breath or peripheral edema. REVIEW OF SYSTEMS: Pertinent positives and negatives noted in HPI. 09/11/24patient seen and examined at bedside with daughters present. Abdominal pain has improved. Discussed findings of MRCP. Continuing to await placement in [facility]. MRCP finding significant for large pancreatic head mass heterogeneous regions of enhancement, encasement of the SMA with abutment of the GDA, close proximity to surrounding structures, highly concerning for delores ashby. No other complaints. 09/12/24 - Patient seen and examined at bedside with daughters present. Patient awaiting transfer to [facility]. Pain improved. Patient seems to be having more success tolerating food at this point. Will continue to advance diet. Answered questions regarding her plan. 09/13/24 - Patient seen and examined at bedside with daughters present. Pain improved. Patient seems to be having more success tolerating food, advance diet to low-fat diet. GI discussed with Dr. Hodges from [facility], patient to be transferred when a bed available, likely earliest would be on Monday. Patient given the option to be discharged home with outpatient follow-up with [facility] for ERCP EUS. Patient declining discharge secondary to pain and decreased oral intake. Await for available bed. PHYSICAL EXAMINATION: Vitals reviewed, hypertensive GENERAL: Resting comfortably in bed. EYES: PERRL, no scleral injection, mild scleral icterus. No vision loss CARDIOVASCULAR: S1 and S2 present. No murmurs, rubs, or gallops. PULMONARY: Chest is clear to auscultation, no wheezing, rhonchi, or crackles. ABDOMEN: Soft, no tenderness, nondistended. No palpable organomegaly. EXTREMITIES: No apparent cyanosis, clubbing. No pedal edema. NEUROLOGICAL: Alert and oriented. Gross neurological examination with no apparent focal deficits. Significant objective findings: Labsglucose 119, total bilirubin 1.5, AST 124, ALT 199, ALP 838 No new imaging Assessment and Plan: In summary, patient is 79-year-old female with hypertension, diabetes mellitus and ascending aortic aneurysm presenting with weakness and abdominal pain. 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 #Unintentional weight loss #Decreased appetite #Transaminitis CT abdomen pelvis with heterogeneous hypodense large pancreatic head Initial total bilirubin 2.7, AST 353, ALT 361, alkaline phosphatase 1282 MRCP with findings of large pancreatic head mass, concerning for malignancy Cancer antigen 19.9 is 2860 Surgery following, note reviewed Oncology following, note reviewed GI following, recommends ERCP with EUS and transfer to [facility] for higher level of care #Hypertension Continue amlodipine 10 mg daily Continue hydralazine 10 mg IVP every 4 hours as needed for high blood pressure greater than 160 systolic Continue losartan 100 mg daily Continue Coreg 3.125 mg twice daily Continue Xanax 0.25 mg twice daily as needed #Diabetes mellitus, type 2 Holding oral medications Begin Accu-Cheks and low-dose sliding scale, monitor for hypoglycemia HbA1c 6.5 Chronic Medical Conditions #Hypertension #AAA Resume home medications DVT ppx: Subq Lovenox 40 meq daily Code status: No code F: P.o. E: Replete as needed N: Low-fat diet Anticipated discharge place: [facility], transfer for higher level of care Anticipated discharge time: When bed available, possibly Monday Dr. Bledsoe seen patient with resident, present during exam, and agreed with findings. Dictation was produced using [employer] dictation software. Please excuse any grammatical, word or spelling errors. Objective - Vital Signs Vital signs: Vital Signs Temp 98.0 F 09/13/24 07:00 Pulse 66 09/13/24 07:00 Resp 18 04/11/25 07:00 BP 176/73 09/13/24 07:00 Pulse Ox 98 09/13/24 07:00 FiO2 Intake & Output 09/12/24 09/13/24 09/13/24 18:59 06:59 18:59 Intake Total 1320 Balance 1320 Intake: Oral 1320 Other: Voiding Method Toilet Toilet # Voids 5 3 # Bowel Movements 1 - Labs CBC & Chem 7: 09/11/24 04:52 09/13/24 04:22 Labs: Abnormal Lab Results - Last 24 Hours (Table) 09/12/24 09/12/24 09/12/24 Range/Units 10:53 12:05 16:34 BUN 21 H (7-17) mg/dL BUN/Creatinine Ratio (12.00-20.00) Ratio Glucose 260 H (74-99) mg/dL POC Glucose (mg/dL) 197 H 169 H (70-110) mg/dL Total Bilirubin 1.9 H (0.2-1.3) mg/dL AST 97 H (14-36) U/L ALT 185 H (4-34) U/L Alkaline Phosphatase 849 H (38-126) U/L Total Protein 6.2 L (6.3-8.2) g/dL Albumin 3.3 L (3.5-5.0) g/dL Albumin/Globulin Ratio (1.60-3.17) Ratio 09/12/24 09/13/24 Range/Units 20:06 04:22 BUN (7-17) mg/dL BUN/Creatinine Ratio 20.14 H (12.00-20.00) Ratio Glucose 119 H (74-99) mg/dL POC Glucose (mg/dL) 138 H (70-110) mg/dL Total Bilirubin 1.5 H (0.2-1.3) mg/dL AST 124 H (14-36) U/L ALT 199 H (4-34) U/L Alkaline Phosphatase 838 H (38-126) U/L Total Protein 6.0 L (6.3-8.2) g/dL Albumin 3.4 L (3.5-5.0) g/dL Albumin/Globulin Ratio 1.31 L (1.60-3.17) Ratio
[2024-09-13 17:05] LABS: Glucose,Whole Blood 250 mg/dL (70-110)
[2024-09-13 20:04] LABS: Glucose,Whole Blood 226 mg/dL (70-110)
[2024-09-14 01:23] LABS: Glucose,Whole Blood 135 mg/dL (70-110)
[2024-09-14 01:38] VITALS: RESP 16
[2024-09-14] MEDS: ALPRAZolam 0.25 MG TAB PO PRN (01:38)
[2024-09-14 07:15] LABS: Glucose,Whole Blood 127 mg/dL (70-110)
[2024-09-14] MEDS: PANTOPRAZOLE 40 MG TABLET PO SCH (08:29)
[2024-09-14 09:44] LABS: BUN/Creat Ratio 21.14 Ratio (12.00-20.00); Blood Urea Nitrogen 14.8 mg/dL (9.0-27.0); Glucose 159 mg/dL (70-110)
[2024-09-14 09:45] LABS: ALT 250 U/L (8-44); AST 230 U/L (13-35); Albumin 3.3 g/dL (3.8-4.9); Albumin/Globulin Ratio 1.38 Ratio (1.60-3.17); Alkaline Phosphatase 855 U/L (41-126); Calcium 8.9 mg/dL (8.7-10.3); Carbon Dioxide 26.5 mmol/L (21.6-31.8); Chloride 104 mmol/L (96-109); Globulin 2.4 g/dL (1.6-3.3); Potassium 3.4 mmol/L (3.5-5.5); Sodium 140 mmol/L (135-145); Total Protein 5.7 g/dL (6.2-8.2)
--- NOTE | 2024-09-14 11:40 | P.PN ---
Subjective Progress Note Date: 09/14/24 History of present illness; Patient is 79-year-old female with hypertension, diabetes mellitus and ascending aortic aneurysm presenting with weakness and abdominal pain. She was seen by her PCP for her symptoms and jaundice who directed her to come to hospital for further evaluation. She is experiencing a generalized abdominal discomfort over the last 7 weeks. She characterizes pain as achy and generalized. She also has frequent belching. She denies any nausea, vomiting, diarrhea or constipation. Denies any hematochezia or melena. She also admits to occasional chills but denies any known fevers. She states on Monday she noticed her urine to be extremely dark and is concerned she is also dehydrated. Patient reports since May she has lost approximately 20 pounds, including 6 pounds in the last 2 weeks accompanied with extreme weakness and lethargy during this time. Patient admits to a history of cholecystectomy and appendectomy. No history of bowel resections. Patient states she had has a colonoscopy in the past. Patient denies any dizziness, lightheadedness, chest pain, shortness of breath or peripheral edema. REVIEW OF SYSTEMS: Pertinent positives and negatives noted in HPI. 09/11/24patient seen and examined at bedside with daughters present. Abdominal pain has improved. Discussed findings of MRCP. Continuing to await placement in [facility]. MRCP finding significant for large pancreatic head mass heterogeneous regions of enhancement, encasement of the SMA with abutment of the GDA, close proximity to surrounding structures, highly concerning for delores ashby. No other complaints. 09/12/24 - Patient seen and examined at bedside with daughters present. Patient awaiting transfer to [facility]. Pain improved. Patient seems to be having more success tolerating food at this point. Will continue to advance diet. Answered questions regarding her plan. 09/13/24 - Patient seen and examined at bedside with daughters present. Pain improved. Patient seems to be having more success tolerating food, advance diet to low-fat diet. GI discussed with Dr. Hodges from [facility], patient to be transferred when a bed available, likely earliest would be on Monday. Patient given the option to be discharged home with outpatient follow-up with [facility] for ERCP EUS. Patient declining discharge secondary to pain and decreased oral intake. Await for available bed. 09/14/24 Patient seen and examined at bedside with daughters present. Pain improved. She is increasingly able to tolerate solid foods. She is passing gas with no bowel movement. Awaiting transfer to [facility]. PHYSICAL EXAMINATION: Vitals reviewed, hypertensive GENERAL: Resting comfortably in bed. EYES: PERRL, no scleral injection, mild scleral icterus. No vision loss CARDIOVASCULAR: S1 and S2 present. No murmurs, rubs, or gallops. PULMONARY: Chest is clear to auscultation, no wheezing, rhonchi, or crackles. ABDOMEN: Soft, no tenderness, nondistended. No palpable organomegaly. EXTREMITIES: No apparent cyanosis, clubbing. No pedal edema. NEUROLOGICAL: Alert and oriented. Gross neurological examination with no apparent focal deficits. Significant objective findings: Labspotassium 3.4, total bilirubin 3.0, AST 230, ALT 250, ALP 855 No new imaging Assessment and Plan: In summary, patient is 79-year-old female with hypertension, diabetes mellitus and ascending aortic aneurysm presenting with weakness and abdominal pain. 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 #Unintentional weight loss #Decreased appetite #Transaminitis CT abdomen pelvis with heterogeneous hypodense large pancreatic head Initial total bilirubin 2.7, AST 353, ALT 361, alkaline phosphatase 1282 MRCP with findings of large pancreatic head mass, concerning for malignancy Cancer antigen 19.9 is 2860 GI following, recommends ERCP with EUS and transfer to [facility] for higher level of care #Hypokalemia Potassium 3.4 Given potassium chloride 40 mill equivalents Monitor CMP #Hypertension Continue amlodipine 10 mg daily Continue hydralazine 10 mg IVP every 4 hours as needed for high blood pressure greater than 160 systolic Continue losartan 100 mg daily Continue Coreg 3.125 mg twice daily Continue Xanax 0.25 mg twice daily as needed #Diabetes mellitus, type 2 Holding oral medications Begin Accu-Cheks and low-dose sliding scale, monitor for hypoglycemia HbA1c 6.5 Chronic Medical Conditions #Hypertension #AAA Resume home medications DVT ppx: Subq Lovenox 40 meq daily Code status: No code F: P.o. E: Replete as needed N: Low-fat diet Anticipated discharge place: [facility], transfer for higher level of care Anticipated discharge time: When bed available, possibly Monday Dr. Bledsoe seen patient with resident, present during exam, and agreed with findings. Dictation was produced using dragon dictation software. Please excuse any grammatical, word or spelling errors. Objective - Vital Signs Vital signs: Vital Signs Temp 97.7 F 09/14/24 07:15 Pulse 56 L 09/14/24 07:15 Resp 16 09/14/24 07:15 BP 149/68 09/14/24 07:15 Pulse Ox 98 09/14/24 07:15 FiO2 Intake & Output 09/13/24 09/14/24 09/14/24 18:59 06:59 18:59 Intake Total 960 Balance 960 Weight 54.431 kg Intake: Oral 960 Other: Voiding Method Toilet # Voids 5 3 - Labs CBC & Chem 7: 09/11/24 04:52 09/14/24 05:21 Labs: Abnormal Lab Results - Last 24 Hours (Table) 09/13/24 09/13/24 09/13/24 Range/Units 12:19 17:04 20:03 POC Glucose (mg/dL) 210 H 250 H 226 H (70-110) mg/dL 09/14/24 09/14/24 Range/Units 01:22 07:14 POC Glucose (mg/dL) 135 H 127 H (70-110) mg/dL
[2024-09-14 12:10] LABS: Glucose,Whole Blood 263 mg/dL (70-110)
[2024-09-14] MEDS: POTASSIUM CHLORIDE ER 20 MEQ TAB.ER PO STA (17:05)
[2024-09-14 17:09] LABS: Glucose,Whole Blood 244 mg/dL (70-110)
[2024-09-14 19:58] LABS: Glucose,Whole Blood 251 mg/dL (70-110)
[2024-09-15 01:15] LABS: Glucose,Whole Blood 145 mg/dL (70-110)
[2024-09-15 07:10] LABS: Glucose,Whole Blood 103 mg/dL (70-110)
[2024-09-15 08:14] LABS: ALT 334 U/L (4-34); AST 324 U/L (14-36); African American GFR (CKD) >90 (>60 ml/min/1.73 sqM); Albumin 3.2 g/dL (3.5-5.0); Albumin/Globulin Ratio 1.1; Alkaline Phosphatase 808 U/L (38-126); Anion Gap 5 mmol/L; Blood Urea Nitrogen 17 mg/dL (7-17); Calcium 9.2 mg/dL (8.4-10.2); Carbon Dioxide 27 mmol/L (22-30); Chloride 103 mmol/L (98-107); Globulin 2.8 g/dL; Glucose 120 mg/dL (74-99); Non-African American GFR(CKD) 87 (>60 ml/min/1.73 sqM); Potassium 3.9 mmol/L (3.5-5.1); Sodium 135 mmol/L (137-145); Total Bilirubin 3.1 mg/dL (0.2-1.3)
[2024-09-15 12:13] LABS: Glucose,Whole Blood 231 mg/dL (70-110)
--- NOTE | 2024-09-15 15:47 | P.DS ---
Providers Date of admission: 09/09/24 19:56 Attending physician: Ethan Wilson MD Consults: 09/09/24 19:59 Consult Physician Urgent Consulting Provider: Susanna Akbar Consult Reason/Comments: transaminits/abnormal CT Do you want consulting provider notified?: Yes 09/10/24 15:14 Consult Physician Routine Consulting Provider: César Chance Consult Reason/Comments: Mass of head of pancreas Do you want consulting provider notified?: Yes Primary care physician: Mónica Odom Hospital Course: Final diagnosis Mass of head of pancreas suspected pancreatic cancer Unintentional weight loss Transaminitis secondary to above Hypokalemia due to poor oral intake Hypertension Diabetes mellitus type 2 History of AAA History of right upper extremity arterial stenting Patient is stable for transfer to the [facility] for GI services. This is an 79 of female medical history significant for diabetes mellitus, hypertension, ascending aortic aneurysm, right upper extremity arterial stenting. Patient presents to the hospital with weakness, right sided abdominal pain and reports a 20 lbs weight loss since September with 6 lbs lost in the last 2 weeks. She has had decreased appetite, fatigue, abdominal discomfort and gas. Patient was noted to have elevated LFTs on admission. She had a CAT scan of the abdomen pelvis with heterogeneous hypodense large pancreatic head mass measuring approximately 6.4 x 5.9 cm with ductal dilation, with suspected underlying neoplasm and also underlying acute pancreatitis. Last colonoscopy was about 4 years ago in [place] and states it was normal. Admitting labs WBC 4.8 hemoglobin 15.4 hematocrit 44 platelet count 221,000 sodium 138 potassium 4.2 BUN 12 creatinine 0.5 glucose 154 total bilirubin 2.7 AST 353 ALT 361 alkaline phosphatase 1282 amylase 40 lipase 40. Patient was admitted to the hospital under internal medicine with oncology and GI consultation. CA 19-9 antigen comes back at 2,860. Patient underwent MRI of the pancreas; reporting redemonstration of heterogeneous large pancreatic head mass with heterogeneous regions of enhancement. With encasement and narrowing of the common bile duct and pancreatic ducts resulting in intra and extrahepatic biliary duct dilation. 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 Encasement of the SMA with abutment of the GDA close proximity to surrounding structures as described above. Overall findings are highly concerning for malignant pancreatic neoplasm such as neuroendocrine tumor versus pancreatic neck in our cell carcinoma versus solid serous cystadenoma versus other. She was accepted at [facility] for further GI evaluation. Accepted under Dr. Hodges and patient will need to have an ERCP EUS completed. She is evaluated today awake alert oriented and awaiting a bed at [facility]. She has been maintained on liquid diet and tolerating. Not having any vomiting at this time. Her LFTs remain elevated and slowly increasing. Her most recent blood work reveals an total bilirubin level of 3.1, AST of 324 ALT of 334 alk phos of 808. Patient has no complaints of chest pain or shortness of breath at this time she has been afebrile and maintaining oxygen saturations on room air. Patient has a bed at [facility] awake transferring today. The impression and plan of care has been dictated by Rosalina Flores, Nurse Practitioner as directed. Dr. Ladi MD I have performed a history and physical examination and medical decision making of this patient, discussed the same with the dictator, and agree with the dictators assessment and plan as written, documented as a scribe. Based on total visit time, I have performed more than 50% of this visit. Patient Condition at Discharge: Stable Plan - Discharge Summary Discharge Rx Participant: No New Discharge Prescriptions: No Action Empagliflozin [Jardiance] 25 mg PO DAILY Aspirin EC [Ecotrin Low Dose] 81 mg PO DAILY Docusate [Colace] 100 mg PO Q2D PRN PRN Reason: Constipation carvediloL [Coreg] 3.125 mg PO BID Insulin Degludec [Tresiba Flextouch U-100 Pen] 7 units SQ DAILY Nitroglycerin Sl Tabs [Nitrostat] 0.4 mg SL Q5M PRN PRN Reason: Chest Pain Losartan Potassium [Cozaar] 100 mg PO DAILY Insulin Aspart (Niacinamide) [Fiasp 100 Unit/ml Flextouch Pen] See Protocol SQ AC-TID Discharge Medication List Aspirin EC [Ecotrin Low Dose] 81 mg PO DAILY 08/24/22 [History] Docusate [Colace] 100 mg PO Q2D PRN 08/24/22 [History] Empagliflozin [Jardiance] 25 mg PO DAILY 08/24/22 [History] Losartan Potassium [Cozaar] 100 mg PO DAILY 08/24/22 [History] Insulin Aspart (Niacinamide) [Fiasp 100 Unit/ml Flextouch Pen] See Protocol SQ AC-TID 09/09/24 [History] Insulin Degludec [Tresiba Flextouch U-100 Pen] 7 units SQ DAILY 09/09/24 [History] Nitroglycerin Sl Tabs [Nitrostat] 0.4 mg SL Q5M PRN 09/09/24 [History] carvediloL [Coreg] 3.125 mg PO BID 09/09/24 [History] Follow up Appointment(s)/Referral(s): Mónica Odom MD [Primary Care Provider] - 1-2 days
[2024-09-15 17:07] LABS: Glucose,Whole Blood 306 mg/dL (70-110)
[2024-09-15 19:46] VITALS: BP 152/78; PULSE 78; TEMP 97.9
== END 2024-09-15 20:15 | disposition short-term general hospital (02) | DRG 435 ==
LOC: EC 17:30 → 5NMEDONC 19:55 → OBSVTOIN 19:56 → 5NMEDONC 20:20
PROVIDERS: ADMIT Internal Medicine; ATTEND Internal Medicine
DX: C25.0 Malignant neoplasm of head of pancreas (principal); K85.90 Acute pancreatitis without necrosis or infection, unspecified; E86.0 Dehydration; E11.9 Type 2 diabetes mellitus without complications; I10 Essential (primary) hypertension; I71.40 Abdominal aortic aneurysm, without rupture, unspecified; R63.4 Abnormal weight loss; R17 Unspecified jaundice; Z79.4 Long term (current) use of insulin; K83.8 Other specified diseases of biliary tract; E87.6 Hypokalemia; R74.01 Elevation of levels of liver transaminase levels; R63.0 Anorexia; Z86.79 Personal history of other diseases of the circulatory system; Z79.82 Long term (current) use of aspirin; Z88.2 Allergy status to sulfonamides; Z88.8 Allergy status to other drugs, medicaments and biological substances; Z91.041 Radiographic dye allergy status; Z79.899 Other long term (current) drug therapy; Z79.84 Long term (current) use of oral hypoglycemic drugs; Z80.3 Family history of malignant neoplasm of breast; Z90.49 Acquired absence of other specified parts of digestive tract; Z90.710 Acquired absence of both cervix and uterus; Z68.21 Body mass index [BMI] 21.0-21.9, adult; Z80.0 Family history of malignant neoplasm of digestive organs
CPT/HCPCS: 36415; 74177; 74183; 80053; 81001; 82150; 83036; 83605; 83690; 85025; 85610; 86301; 87636; 93005; 96361; 96374; 96375; 96376; 99285